=== PATIENT | male | born 1990 | race Caucasian/White ===

== ENCOUNTER 2017-03-23 11:44 | Inpatient (IN) | payer MEDICAID ==
[~2017-03-23] VITALS: Ht 165.1 cm; Wt 63.7 kg
--- NOTE | 2017-03-23 11:46 | QN ---
Documentation Comment Medical screening exam initiated. Patient will be seen by another provider after vital signs are taken in triage. GABRIEL SIMMONS MD Mar 23, 2017 11:46
[2017-03-23] MEDS ORDERED: morphine 4 MG/ML VIAL IV STA (12:08)
[2017-03-23] MEDS ORDERED: ONDANSETRON 4 MG INJ IV STA (12:08)
[2017-03-23] MEDS ORDERED: FAMOTIDINE 20 MG INJ IV STA (12:08)
[2017-03-23] MEDS ORDERED: SOD CHLORIDE 0.9% 1,000 ML IV ONE ×2 (12:30→21:00)
[2017-03-23 12:34] LABS: ADD SCAN DIFF NO
[2017-03-23 12:35] LABS: BASOPHILS % 0.2 % (0.0-2.0); HEMATOCRIT 44.9 % (42.0-52.0); HEMOGLOBIN 16.5 g/dl (14.0-18.0); LYMPHOCYTES # 1.2 10^3/ul (0.8-2.9); LYMPHOCYTES % 7.3 % (15.0-51.0); MEAN CORPUSCULAR HEMOGLOBIN 32.3 pg (29.0-33.0); MEAN CORPUSCULAR HGB CONC 36.7 g/dl (32.0-37.0); MEAN CORPUSCULAR VOLUME 87.9 fl (82.0-101.0); MEAN PLATELET VOLUME 9.8 fl (7.4-10.4); MONOCYTE # 0.7 10^3/ul (0.3-0.9); MONOCYTES % 4.2 % (0.0-11.0); NEUTROPHIL # 14.7 10^3/ul (1.6-7.5); PLATELET COUNT 318 10^3/UL (140-415); RED BLOOD COUNT 5.11 10^6/ul (4.70-6.10); RED CELL DISTRIBUTION WIDTH 11.9 % (11.5-14.5); WHITE BLOOD COUNT 16.7 10^3/ul (4.8-10.8)
[2017-03-23 12:56] LABS: ALBUMIN/GLOBULIN RATIO 1.61; CALCIUM 9.8 mg/dl (8.4-10.2); CREATININE 1.07 mg/dl (0.61-1.24); POTASSIUM 3.2 mmol/L (3.5-5.1); TOTAL PROTEIN 8.1 g/dl (6.1-8.1)
[2017-03-23] MEDS ORDERED: POTASSIUM CHLORIDE (SR) 20 MEQ TAB PO STA (13:11)
[2017-03-23] MEDS ORDERED: HYDROmorphONE 1 MG/ML SYG IV STA (13:29)
[2017-03-23] MEDS ORDERED: SOD CHLORIDE 0.9% 100 ML ONE (14:05)
[2017-03-23] MEDS ORDERED: IOHEXOL 300MG/ML 150 ML BTL ONE (14:05)
[2017-03-23 14:06] LABS: ADD UMIC YES; URINE BILIRUBIN (Dip) NEGATIVE (NEGATIVE); URINE BLOOD (Dip) NEGATIVE (NEGATIVE); URINE COLOR YELLOW (YELLOW); URINE GLUCOSE (Dip) NEGATIVE (NEGATIVE); URINE KETONES (Dip) TRACE (NEGATIVE); URINE LEUKOCYTE ESTERASE (Dip) NEGATIVE (NEGATIVE); URINE NITRITE (Dip) NEGATIVE (NEGATIVE); URINE TOTAL PROTEIN (Dip) 1+ (NEGATIVE); URINE UROBILINOGEN (Dip) 0.2 E.U./dL (0.1-1.0)
[2017-03-23 14:16] LABS: BACTERIA,URINE FEW; URINE RBCS NONE SEEN /HPF (0)
[2017-03-23] MEDS ORDERED: ONDANSETRON 4 MG INJ IV PRN (14:30)
[2017-03-23] MEDS ORDERED: AMPICILLIN/SULB 3 GM/NS (PMX) 100 ML IVPB ONE (14:30)
[2017-03-23] MEDS ORDERED: ACETAMINOPHEN 325 MG TAB PO PRN ×2 (14:30→15:30)
--- NOTE | 2017-03-23 14:33 | RADRPT ---
PROCEDURE: CT Abdomen and Pelvis with Contrast CLINICAL INDICATION: Pain, fever TECHNIQUE: Transaxial images were obtained through the abdomen and pelvis on a multi-slice scanner following the intravenous administration of iodinated contrast. A small amount of oral contrast had previously been given. Sagittal and coronal re-formations were subsequently reconstructed. One or more of the following dose reduction techniques were used: - Automated exposure control. - Adjustment of the mA and/or kV according to patient size. - Use of iterative reconstruction technique. Radiation dose: CTDIvol = 8.49 mGy; DLP = 492.55 mGy-cm. COMPARISON: No prior studies are available for comparison. FINDINGS: Lung bases: The visualized lung bases appear unremarkable. Liver: The liver is normal in size but diffusely fatty infiltrated. No focal lesion is identified. The hepatic and portal veins appear patent. Gallbladder: The wall is not thickened. No radiopaque stones are identified. Bile ducts: The intra and extrahepatic bile ducts are normal in caliber. Pancreas: There is fluid and phlegmon to the pancreatic bed and extending into the mesentery as well as into the left and right anterior pararenal spaces compatible with an acute pancreatitis. No jc creatic necrosis or pseudocyst is identified. Spleen: Normal in size with no focal lesion. Adrenals: Normal with no mass identified. Kidneys, ureters and bladder: The kidneys enhance normally and are normal in size and there is no ma ss, pathological calcification, or hydronephrosis evident. There is no perinephric stranding. The ur eters are normal in caliber and no ureteroliths are identified. The bladder appears unremarkable. Reproductive organs: The prostate is not enlarged. Stomach, bowel, and mesentery: The stomach is moderately distended with fluid. Phlegmon is seen abo ut the second and proximal third portions of the duodenum. There is no evidence of bowel obstructio n. Appendix: A normal vermiform appendix is evident. Peritoneum: No free intraperitoneal fluid or air is identified. Aorta: Normal in caliber with no aneurysmal dilatation. IVC: Unremarkable. Lymph nodes: No pathologically enlarged nodes are identified. Osseous structures: The osseous elements appear intact. IMPRESSION: 1. Findings compatible with acute pancreatitis with extensive phlegmon extending through the pancre atic bed, and into the mesentery and into the left and right anterior pararenal spaces. No pancreat ic necrosis is evident. 2. No gallstones or bile duct dilatation is evident. 3. Phlegmon extends about the duodenum but there is no evidence of bowel obstruction and a normal v ermiform appendix is evident. 4. No evidence of urinary outflow obstruction or ureterolithiasis. 5. Normal sized diffusely fatty infiltrated liver with no focal lesion. Findings of severe acute pancreatitis were telephoned by Red Tripathi MD to Dr. Wild on 03/23/20 17 and 1430 hours. Physician Ariana Date Time Electronically viewed and signed by Sonny Tripathi Physician on 03/23/2017 14:33 RH/
--- NOTE | 2017-03-23 14:44 | RADRPT ---
PROCEDURE: Right upper quadrant abdominal ultrasound. CLINICAL INDICATION: Abdominal pain TECHNIQUE: Trotter scale and color doppler ultrasound images of the right upper quadrant. COMPARISON: CT abdomen pelvis 03/23/2017 FINDINGS: Pancreas: Hypoechoic changes of the pancreas may be secondary to pancreatitis. Liver: Morphology: Normal in size and contour. Echogenicity: Increased echogenicity of the liver parenchyma suggestive of hepatic steatosis. Focal lesions: None. Main portal vein: Patent with hepatopetal flow. Biliary System: Normal appearing gallbladder wall. No gallstones seen. No intrahepatic biliary dilatation. Common bile duct measures 4.2 mm in maximal dimension. Kidneys: Right 9.7 cm in length. Right renal cortical thickness is preserved. Normal echogenicity. No hydronephrosis. No renal calculi. No focal lesions. Trace amount in the upper abdomen. IMPRESSION: Normal gallbladder without gallstones. Increased echogenicity of the liver parenchyma suggestive of hepatic steatosis. Hypoechoic changes of the pancreas may be secondary to pancreatitis. Recommend correlation with bio chemical markers. RPTAT: AADD .Hardik Villanueva MD, MD Date Time Electronically viewed and signed by .Hardik Villanueva MD, on 03/23/2017 14:44 .B/
--- NOTE | 2017-03-23 14:55 | ERA ---
ER Documentation Chief Complaint Date/Time DATE: 03/23/17 TIME: 14:54 Chief Complaint AP PAIN SINCE AM, PT DIAPHRETIC HPI Patient is a 27-year-old male who presents with abdominal pain. The abdominal pain started this morning. It is midepigastric and constant in nature. It is sharp. The patient has never had this before. He has had no treatment as of yet. ROS All systems reviewed and are negative except as per history of present illness. Allergies Allergies: Coded Allergies: No Known Allergy (Unverified , 08/10/15) PMhx/Soc Medical and Surgical Hx: pt denies Medical Hx, pt denies Surgical Hx History of Surgery: No Anesthesia Reaction: No Hx Neurological Disorder: No Hx Respiratory Disorders: No Hx Cardiac Disorders: No Hx Psychiatric Problems: No Hx Miscellaneous Medical Probl: No Hx Alcohol Use: No Hx Substance Use: No Hx Tobacco Use: No FmHx Family History: No diabetes Physical Exam Vitals Vital Signs Date Time Temp Pulse Resp B/P Pulse Ox O2 Delivery O2 Flow Rate FiO2 03/23/17 11:55 95.9 104 20 126/61 98 Physical Exam Const: Moderate distress secondary to pain Head: Atraumatic Eyes: Normal Conjunctiva ENT: Normal External Ears, Nose and Mouth. Neck: Full range of motion..~ No meningismus. Resp: Clear to auscultation bilaterally Cardio: Regular rate and rhythm, no murmurs Abd: Soft, midepigastric tenderness to palpation without rebound or guarding Skin: No petechiae or rashes Back: No midline or flank tenderness Ext: No cyanosis, or edema Neur: Awake and alert Psych: Normal Mood and Affect Result Diagram: 03/23/17 1230 03/23/17 1230 Results 24 hrs Laboratory Tests Test 03/23/17 12:30 03/23/17 13:30 White Blood Count 16.710^3/ul Red Blood Count 5.1110^6/ul Hemoglobin 16.5g/dl Hematocrit 44.9% Mean Corpuscular Volume 87.9fl Mean Corpuscular Hemoglobin 32.3pg Mean Corpuscular Hemoglobin Concent 36.7g/dl Red Cell Distribution Width 11.9% Platelet Count 29617^3/UL Mean Platelet Volume 9.8fl Neutrophils % 88.0% Lymphocytes % 7.3% Monocytes % 4.2% Eosinophils % 0.0% Basophils % 0.2% Nucleated Red Blood Cells % 0.0/100WBC Neutrophils # 14.710^3/ul Lymphocytes # 1.210^3/ul Monocytes # 0.710^3/ul Eosinophils # 0.010^3/ul Basophils # 0.010^3/ul Nucleated Red Blood Cells # 0.010^3/ul Sodium Level 142mmol/L Potassium Level 3.2mmol/L Chloride Level 103mmol/L Carbon Dioxide Level 21mmol/L Anion Gap 21 Blood Urea Nitrogen 21mg/dl Creatinine 1.07mg/dl Glucose Level 169mg/dl Calcium Level 9.8mg/dl Total Bilirubin 1.0mg/dl Direct Bilirubin 0.00mg/dl Indirect Bilirubin 1.0mg/dl Aspartate Amino Transf (AST/SGOT) 81IU/L Alanine Aminotransferase (ALT/SGPT) 82IU/L Alkaline Phosphatase 119IU/L Total Protein 8.1g/dl Albumin 5.0g/dl Globulin 3.10g/dl Albumin/Globulin Ratio 1.61 Lipase 5605U/L Urine Color YELLOW Urine Clarity CLEAR Urine pH 7.0 Urine Specific [place] 1.015 Urine Ketones TRACE Urine Nitrite NEGATIVE Urine Bilirubin NEGATIVE Urine Urobilinogen 0.2 E.U./dL Urine Leukocyte Esterase NEGATIVE Urine Microscopic RBC NONE SEEN/HPF Urine Microscopic WBC NONE SEEN/HPF Urine Amorphous Phosphates FEW Urine Bacteria FEW Urine Hemoglobin NEGATIVE Urine Glucose NEGATIVE% Urine Total Protein 1+ Current Medications Medications (Trade) Dose Ordered Sig/Miguel Route PRN Reason Start Time Stop Time Status Last Admin Dose Admin Morphine Sulfate (morphine) 4 mg ONCE STAT IV 03/23/17 12:08 03/23/17 12:09 DC 03/23/17 12:24 Ondansetron HCl (Zofran Inj) 4 mg ONCE STAT IV 03/23/17 12:08 03/23/17 12:09 DC 03/23/17 12:24 Famotidine 20 mg 20 mg ONCE STAT IV 03/23/17 12:08 03/23/17 12:09 DC 03/23/17 12:24 Sodium Chloride (NS) 1,000 ml @ 0 mls/hr Q0M ONCE IV 03/23/17 12:30 03/23/17 12:33 DC 03/23/17 13:28 Potassium Chloride (Klor-Con 20) 40 meq ONCE STAT PO 03/23/17 13:11 03/23/17 13:13 DC 03/23/17 13:26 Hydromorphone HCl (Dilaudid) 1 mg ONCE STAT IV 03/23/17 13:29 03/23/17 13:31 DC 03/23/17 13:45 IV Flush 10 ml 10 ml STK-MED ONCE .ROUTE 03/23/17 14:05 03/23/17 14:06 DC 03/23/17 14:17 Sodium Chloride (NS) 100 ml @ ud STK-MED ONCE .ROUTE 03/23/17 14:05 03/23/17 14:06 DC 03/23/17 14:18 Iohexol 150 ml 150 ml STK-MED ONCE .ROUTE 03/23/17 14:05 03/23/17 14:06 DC 03/23/17 14:18 Ampicillin Sodium/ Sulbactam Sodium (Unasyn 3gm/NS (Pmx)) 100 ml @ 100 mls/hr ONCE ONCE IVPB 03/23/17 14:30 03/23/17 15:29 Ondansetron HCl (Zofran Inj) 4 mg BRIDGE ORDER PRN IV NAUSEA AND/OR VOMITING 03/23/17 14:30 03/24/17 14:29 Acetaminophen (Tylenol Tab) 650 mg ER BRIDGE PRN PO MILD PAIN/FEVER 03/23/17 14:30 03/24/17 14:29 Procedures/MDM CT scan shows pancreatic phlegmon per radiology. Patient is a 27-year-old male presents with acute pancreatitis. He was found to have phlegmon on CT scan as well. The patient was given Unasyn IV. His white blood cell count is elevated at 16.7. I have spoke with Dr. Young from the panel team for admission to a medical surgical bed. I have also placed a call to Dr. Wagner from surgery as he is the surgeon senior health consultant. I am awaiting a callback at this time. At this point I doubt sepsis. Departure Diagnosis: Primary Impression: Abdominal pain Qualified Code: R10.13 - Epigastric pain Additional Impression: Pancreatitis Qualified Code: K85.92 - Acute pancreatitis with infected necrosis, unspecified pancreatitis type Condition: GABRIEL Vazquez MD Mar 23, 2017 14:55
[2017-03-23] MEDS ORDERED: BISACODYL (EC) 5 MG TAB PO PRN (15:30)
[2017-03-23] MEDS ORDERED: OXYCODONE/ACETAMINOPHEN (5/325) TAB PO PRN (15:30)
[2017-03-23] MEDS ORDERED: NACL 0.9% 3 ML SYG IV SCH (15:30)
[2017-03-23] MEDS ORDERED: ACETAMINOPHEN 650 MG SUPP PR PRN (15:30)
[2017-03-23] MEDS ORDERED: SODIUM CHLORIDE 0.9% 1L BAG IV SCH (15:30)
[2017-03-23] MEDS ORDERED: BISACODYL 10 MG SUPP PR PRN (15:30)
--- NOTE | 2017-03-23 16:35 | RADRPT ---
PROCEDURE: XR Chest. CLINICAL INDICATION: preop TECHNIQUE: Single frontal view of the chest was obtained COMPARISON: None FINDINGS: The heart and mediastinum are within normal limits. The lungs are clear. There is no pleural effusion or pneumothorax. RPTAT: AA IMPRESSION: No acute disease. .Bubba Rodriguez MD, Date Time Electronically viewed and signed by .Bubba Rodriguez MD, on 03/23/2017 16:34 .S/
[2017-03-23] MEDS: SOD CHLORIDE 0.9% 1,000 ML IV SCH ×2 (17:34→20:02)
[2017-03-23 18:09] LABS: INR 0.89; PT RATIO 0.9
[2017-03-23 18:10] LABS: PARTIAL THROMBOPLASTIN TIME 21.8 Sec (25.0-35.0)
[2017-03-23 18:48] VITALS: TEMP 98
[2017-03-23] MEDS: morphine 2 MG INJ IV PRN (18:52)
[2017-03-23] MEDS: ONDANSETRON 4 MG INJ IV PRN (18:57)
[2017-03-23] MEDS: morphine 4 MG/ML VIAL IV PRN (20:29)
[2017-03-23] MEDS: AMPICILLIN/SULB 3 GM/NS (PMX) 100 ML IVPB SCH (20:29)
[2017-03-23] MEDS: FAMOTIDINE 20 MG INJ IV SCH (22:37)
[2017-03-23] MEDS ORDERED: OXYC-279 PO (23:12)
[2017-03-23] MEDS ORDERED: FAMO10TA84 PO (23:12)
[2017-03-23] MEDS ORDERED: ACET-141 PO (23:12)
[2017-03-24 00:44] VITALS: Ht 165.1 cm; Wt 63.7 kg
[2017-03-24 00:45] VITALS: BP 133/91; RESP 19
[2017-03-24] MEDS: SOD CHLORIDE 0.9% 1,000 ML IV SCH ×2 (00:51→16:33)
[2017-03-24] MEDS: ONDANSETRON 4 MG INJ IV PRN ×2 (00:57→07:33)
[2017-03-24] MEDS: morphine 4 MG/ML VIAL IV PRN ×3 (00:57→16:35)
[2017-03-24] MEDS: AMPICILLIN/SULB 3 GM/NS (PMX) 100 ML IVPB SCH ×5 (02:12→19:10)
[2017-03-24 05:22] LABS: ADD SCAN DIFF NO
[2017-03-24 05:27] LABS: BASOPHILS % 0.1 % (0.0-2.0); HEMATOCRIT 52.5 % (42.0-52.0); HEMOGLOBIN 18.2 g/dl (14.0-18.0); LYMPHOCYTES # 0.7 10^3/ul (0.8-2.9); LYMPHOCYTES % 5.1 % (15.0-51.0); MEAN CORPUSCULAR HGB CONC 34.7 g/dl (32.0-37.0); MEAN CORPUSCULAR VOLUME 92.3 fl (82.0-101.0); MEAN PLATELET VOLUME 10.3 fl (7.4-10.4); MONOCYTE # 0.9 10^3/ul (0.3-0.9); MONOCYTES % 6.3 % (0.0-11.0); NEUTROPHIL # 12.1 10^3/ul (1.6-7.5); NEUTROPHILS % 88.1 % (39.0-77.0); PLATELET COUNT 236 10^3/UL (140-415); RED BLOOD COUNT 5.69 10^6/ul (4.70-6.10); RED CELL DISTRIBUTION WIDTH 12.7 % (11.5-14.5); WHITE BLOOD COUNT 13.8 10^3/ul (4.8-10.8)
[2017-03-24 05:47] LABS: ALBUMIN 4.1 g/dl (3.3-4.9); ALBUMIN/GLOBULIN RATIO 1.41; BILIRUBIN,INDIRECT 0.9 mg/dl (0-1.1); BILIRUBIN,TOTAL 0.9 mg/dl (0.2-1.3); CALCIUM 9.2 mg/dl (8.4-10.2); CREATININE 1.15 mg/dl (0.61-1.24); PHOSPHORUS 5.8 mg/dl (2.5-4.9); POTASSIUM 4.9 mmol/L (3.5-5.1)
[2017-03-24 06:17] LABS: THYROID STIMULATING HORMONE 0.531 MIU/L (0.465-4.680)
[2017-03-24 07:00] VITALS: BP 128/80; RESP 20
[2017-03-24 09:58] LABS: AADO2 Arterial 15.3 mmHg (7.0-24.0); Allen Test ACCEPTAB; Arterial Base Excess -3.1 mmol/L (-3.0-3); Arterial COHb 0.3 % (0.0-3.0); Arterial MetHb 0.5 % (0.0-1.5); Arterial Total Hemglobin 18.5 g/dl (12.0-18.0); MODE ROOM AIR
[2017-03-24 10:23] LABS: INR 0.99; PROTIME 13.1 Sec (12.2-14.2)
[2017-03-24 10:25] LABS: LACTATE DEHYDROGENASE 519 IU/L (313-618)
[2017-03-24 10:27] LABS: CHOL/HDL RATIO 2.9 RATIO
[2017-03-24] MEDS: FAMOTIDINE 20 MG INJ IV SCH ×2 (10:42→20:54)
[2017-03-24] MEDS ORDERED: SOD CHLORIDE 0.9% 1,000 ML IV ONE (12:00)
--- NOTE | 2017-03-24 12:06 | PN ---
Date/Time of Note Date/Time of Note DATE: 03/24/17 TIME: 12:04 Assessment/Plan VTE Prophylaxis VTE Prophylaxis Intervention: LMWH Lines/Catheters IV [facility] Peripheral IV Urinary Cath still in place: No Assessment/Plan Chief Complaint/Hosp Course Subjective moderate pain. Recent vomiting no hematemesis Objective: Vital signs stable Physical examination No pallor icterus adenopathy Regular Diminished Diminished bs; mod diffuse tenderness w possible voluntary guarding No edema Assessment and plan 1. Severe pancreatitis stable continue n.p.o. fluids no gallstones present 2. Chronic alcoholism; consider counseling AA 3. Alcoholic liver disease? 4. Depression? Problems: Exam/Review of Systems Vital Signs Vitals Vital Signs Date Time Temp Pulse Resp B/P Pulse Ox O2 Delivery O2 Flow Rate FiO2 03/24/17 07:00 98.0 117 20 128/80 98 03/24/17 00:07 Room Air Intake and Output 03/23/17 03/23/17 03/24/17 15:00 23:00 07:00 Intake Total 600 ml Output Total 250 ml Balance 350 ml Results Result Diagram: 03/24/17 0449 03/24/17 0449 Results 24 hrs Laboratory Tests Test 03/23/17 12:30 03/23/17 13:30 03/23/17 18:00 03/24/17 04:49 White Blood Count 16.7 H 13.8 H Red Blood Count 5.11 5.69 Hemoglobin 16.5 18.2 H Hematocrit 44.9 52.5 H Mean Corpuscular Volume 87.9 92.3 Mean Corpuscular Hemoglobin 32.3 32.0 Mean Corpuscular Hemoglobin Concent 36.7 34.7 Red Cell Distribution Width 11.9 12.7 Platelet Count 318 236 # Mean Platelet Volume 9.8 10.3 Neutrophils % 88.0 H 88.1 H Lymphocytes % 7.3 L 5.1 L Monocytes % 4.2 6.3 Eosinophils % 0.0 0.0 Basophils % 0.2 0.1 Nucleated Red Blood Cells % 0.0 0.0 Neutrophils # 14.7 H 12.1 H Lymphocytes # 1.2 0.7 L Monocytes # 0.7 0.9 Eosinophils # 0.0 0.0 Basophils # 0.0 0.0 Nucleated Red Blood Cells # 0.0 0.0 Sodium Level 142 143 Potassium Level 3.2 L 4.9 Chloride Level 103 106 Carbon Dioxide Level 21 25 Anion Gap 21 H 17 H Blood Urea Nitrogen 21 H 22 H Creatinine 1.07 1.15 Glucose Level 169 132 Calcium Level 9.8 9.2 Total Bilirubin 1.0 0.9 Direct Bilirubin 0.00 0.00 Indirect Bilirubin 1.0 0.9 Aspartate Amino Transf (AST/SGOT) 81 H 52 H Alanine Aminotransferase (ALT/SGPT) 82 H 63 Alkaline Phosphatase 119 82 Total Protein 8.1 7.0 # Albumin 5.0 H 4.1 Globulin 3.10 2.90 Albumin/Globulin Ratio 1.61 1.41 Lipase 5605 H Urine Color YELLOW Urine Clarity CLEAR Urine pH 7.0 Urine Specific [place] 1.015 Urine Ketones TRACE Urine Nitrite NEGATIVE Urine Bilirubin NEGATIVE Urine Urobilinogen 0.2 E.U./dL Urine Leukocyte Esterase NEGATIVE Urine Microscopic RBC NONE SEEN Urine Microscopic WBC NONE SEEN Urine Amorphous Phosphates FEW Urine Bacteria FEW Urine Hemoglobin NEGATIVE Urine Glucose NEGATIVE Urine Total Protein 1+ H Prothrombin Time 12.0 L Prothrombin Time Ratio 0.9 INR International Normalized Ratio 0.89 Activated Partial Thromboplast Time 21.8 L Hemoglobin A1c 5.7 Phosphorus Level 5.8 H Magnesium Level 2.0 Thyroid Stimulating Hormone (TSH) 0.531 Test 03/24/17 08:00 03/24/17 09:40 Blood Gas Specimen Source Blood arterial Arterial Blood Date Drawn 03/24/2017 9:40:24 AM Arterial Blood pH (Temp corrected) 7.359 Arterial Blood pCO2 (Temp correct) 40.0 Arterial Blood pO2 (Temp corrected) 86.5 Arterial Blood HCO3 22.0 Arterial Blood Base Excess -3.1 L Arterial Blood Oxygen Saturation 95.8 Omar Test ACCEPTAB Arterial Blood Gas Puncture Site Left Radial Arterial Blood Carboxyhemoglobin 0.3 Arterial Blood Methemoglobin 0.5 Blood Gas A-a O2 Differential 15.3 Oxyhemoglobin Percent 95.0 Total Hemoglobin 18.5 H Blood Gas Temperature 37.0 Blood Gas Modality ROOM AIR FiO2 21.0 Blood Gas Notified Whom JLD Blood Gas Notified Time 03/24/2017 9:58:03 AM Prothrombin Time 13.1 Prothrombin Time Ratio 1.0 INR International Normalized Ratio 0.99 Lactate Dehydrogenase 519 Triglycerides Level 121 Cholesterol Level 127 LDL Cholesterol, Calculated 60 HDL Cholesterol 43 Cholesterol/HDL Ratio 2.9 Lipase 6140 H Medications Medications Current Medications Sodium Chloride (NS) 1,000 ml @ 125 mls/hr Q8H IV Last administered on 00:51; Admin Dose 125 MLS/HR; Start 03/23/17 at 15:01 Ondansetron HCl (Zofran Inj) 4 mg Q6H PRN IV NAUSEA AND/OR VOMITING Last administered on 03/24/17 07:33; Admin Dose 4 MG; Start 03/23/17 at 15:30 Acetaminophen (Tylenol Tab) 650 mg Q6H PRN PO PAIN LEVEL 1-3 OR FEVER; Start at 15:30 Acetaminophen (Tylenol Supp) 650 mg Q6H PRN AR PAIN LEVEL 1-3 OR FEVER; Start 03/23/17 at 15:30 Oxycodone/ Acetaminophen (Percocet (5/ 325)) 1 tab Q6H PRN PO MODERATE PAIN LEVEL 4-6; Start 03/23/17 at 15:30 Morphine Sulfate (morphine) 2 mg Q4H PRN IV SEVERE PAIN LEVEL 7-10 Last administered on 03/23/17 18:52; Admin Dose 2 MG; Start 03/23/17 at 15:30 Bisacodyl (Dulcolax) 5 mg DAILY PRN PO CONSTIPATION; Start 03/23/17 at 15:30 Bisacodyl (Dulcolax Supp) 10 mg DAILY PRN AR CONSTIPATION; Start 03/23/17 at 15: 30 Famotidine 20 mg 20 mg Q12 IV Last administered on 03/24/17 10:42; Admin Dose 20 MG; Start 03/23/17 at 21:00 Ampicillin Sodium/ Sulbactam Sodium (Unasyn 3gm/NS (Pmx)) 100 ml @ 100 mls/hr Q6 IVPB Last administered on 03/24/17 07:10; Admin Dose 100 MLS/HR; Start at 19:00 Morphine Sulfate 4 mg 4 mg Q4 PRN IV PAIN LEVEL 6-10 Last administered on 10:46; Admin Dose 4 MG; Start 03/23/17 at 20:30 Sodium Chloride (NS) 1,000 ml @ 1,000 mls/hr Q1H ONCE IV ; Start 03/24/17 at 12: 00; Stop 03/24/17 at 12:59 ROSALBA SKAGGS MD Mar 24, 2017 12:06
[2017-03-24] MEDS ORDERED: ONDANSETRON 4 MG INJ IV PRN (13:00)
--- NOTE | 2017-03-24 13:13 | HP ---
DATE OF ADMISSION: 03/23/2017 PRIMARY CARE PHYSICIAN: Unknown. PLAN CHECKER: Dr. George Martínez. CHIEF COMPLAINT: Abdominal pain. 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 No similar pain in the past. He oc casionally ____, but denies any ill contacts, associated nausea, vomiting, subjective fever, chills , no diarrhea or constipation. No hematemesis, hematochezia or melena. No previous similar discomf ort in the past. The patient states he does drink. EMERGENCY ROOM: Stable vital signs except sinus tachycardia. EKG pending. PAST MEDICAL HISTORY: Alcoholism? PAST SURGICAL HISTORY: None. SOCIAL HISTORY: Beer, but no hard liquor daily. No tobacco substances. Works in construction. FAMILY HISTORY: There is no family history of early coronary artery disease, cancer, or stroke that I am aware of. ALLERGIES: NO KNOWN DRUG ALLERGIES. HOME MEDICATIONS: None. REVIEW OF SYSTEMS: NEUROLOGIC: No headache. No loss of speech or vision. CARDIOVASCULAR: No chest pain, no dyspnea, no edema. LUNGS: No cough, no wheezing. Possible fever. ABDOMEN: Pain, nausea, vomiting, no diarrhea. GENITOURINARY: No hematuria. Positive abdominal pain, subjective, fever, no dysuria. MUSCULOSKELETAL: No gait dysfunction. No rash, no itching, no edema. CONSTITUTIONAL: Positive subjective fever, chills, potentially rigor. ENDOCRINE: No previous diabetes, dyslipidemia, anemia, or thyroid dysfunction. HEMATOLOGIC: No hematochezia, melena, hematuria. PSYCHIATRY: The patient has stable mood, ____. PHYSICAL EXAMINATION: HEENT: Extraocular movements appear to be intact. No pallor, no icterus, no adenopathy, no carotid bruits, no JVD. No droop. CARDIOVASCULAR: S1, ____ appear to be regular. No murmur, rub, gallops appreciated. LUNGS: Diminished breath sounds bilaterally. No tachypnea. ABDOMEN: Bowel sounds are diminished, mild, tender, diffuse, nondistended. No rigidity, rebound, guarding. There may be some mild voluntary guarding. No flank ecchymosis today. EXTREMITIES: Without any edema. LABORATORY DATA: Sodium 142, potassium 3.2, chloride 103, bicarbonate 21, BUN of 21, creatinine 1.0 . Glucose 160. LFTs show normal bilirubin 1.0, AST and ALT of 81 and 82, alkaline phosphatase of 1 19, protein of 8, albumin of 5, lipase of 5600. TSH is 531. INR is 0.9. White cell count is 16, h emoglobin and hematocrit of 16 and 44, platelets of 318, triglycerides today total of 127, LDL 60, H DL of 43. Urobilinogen 0.2. ABG today shows pH of 7.35/40/86, saturation 95, -3 of base excess. Chest x-ray: No acute process. CAT scan abdomen and pelvis read as pancreatitis with extensive phl egmon extending through the pancreatic bed, into the mesentery and into the left and right anterior perirenal spaces. No necrosis evident, no gallstones or pancreatic duct palpitations evident. The phlegmon extends about the duodenum, but there is no evidence of bowel obstruction, diffuse fatty in filtrative liver disease with no focal lesion. Ultrasound of gallbladder demonstrating a normal gal lbladder without gallstones. There is echogenicity of the liver____ hepatic steatosis. ASSESSMENT AND PLAN: 1. Acute severe pancreatitis. 2. Alcoholism. 3. Possible alcoholic liver disease. 4. Possible depression. PLAN: Admit to med/surg, fluids, n.p.o., IV fluid, potentially may need Zosyn. Surgical evaluation if does not heal, may need debridement. Continue GI and DVT prophylaxis. Dictated By: ROSALBA SKAGGS MD AC/NTS Conf#: [id number] DID#: [id number] CC: GEORGE MARTÍNEZ MD;*EndCC*
--- NOTE | 2017-03-24 20:19 | CONS ---
[facility] INITIAL INPATIENT CONSULTATION NOTE DATE OF CONSULTATION: 03/24/2017 PLACE OF SERVICE: [facility], 4th floor. IMPRESSION AND PLAN: A very pleasant and otherwise seemingly healthy 27-year- old young gentleman with possible heavy alcohol abuse presenting with pancreatitis that in this setting is likely due to alcohol intake. The gallbladder does not demonstrate any presence of stones on the images, but certainly a few percentage of these patients also have biliary disease, which could explain the pancreatitis. Fortunately, there is no indication for any surgical intervention, and the patient should be able to recover with nonoperative management in hospital with pain control, fluid administration and careful observation. I recommended that the patient absolutely abstain from alcohol intake and that we would consider a laparoscopic cholecystectomy as a preventive measure to be done in several weeks' time in order to make sure that there is no biliary stone disease that may have precipitated this problem. I explained all this to the patient in detail (no family present during any of my discussions with the patient), and the patient appeared to understand and agreed with the plan. With above assessment, I have recommended the followin. Continue current management. 2. Check labs in a.m. 3. Keep n.p.o. 4. Intravenous fluids. 5. Treat symptoms. 6. Start clear liquid diet once the lipase starts trending down. Thank you again for allowing us to participate in the care of this very pleasant gentleman and I am certain his wonderful family. If there are any questions, please feel free to contact me at [phone]. UPDATED CLINICAL SUMMARY: A very pleasant and otherwise seemingly healthy 27- year-old young gentleman admitted to the [facility] Emergency Department on 03/23/2017 with pancreatitis that is likely due to alcohol. COMORBIDITIES: Possible alcoholism. HISTORY OF PRESENT ILLNESS: The patient is a very pleasant 27-year-old gentleman who presented with abdominal pain and elevated lipase and CT findings that were consistent with pancreatitis. He reports drinking significantly in the form of beer. He has never had any similar pain in the past and no other prior episodes of pancreatitis. ALLERGIES: NO KNOWN DRUG ALLERGIES. HOME MEDICATIONS: None. SOCIAL HISTORY: The patient reports drinking beer but no hard liquor on a daily basis. No history of tobacco abuse. No intravenous drug use. He works in construction. FAMILY HISTORY: There is no mention of major medical, surgical or oncologic problems in the family. REVIEW OF SYSTEMS: Other than the above mentioned, there are no other pertinent positives or pertinent negatives in a complete 14-point review of systems. PHYSICAL EXAMINATION: GENERAL: The patient appears to be a very pleasant young gentleman of descent, appearing stated age, lying in bed comfortably and in no acute distress. BMI 23.4. VITAL SIGNS: Temperature 98.0, blood pressure 128/80, pulse 117, respiratory rate 20, pulse oximetry 98% on room air. HEENT: Normocephalic and atraumatic. Extraocular muscles and hearing are grossly intact bilaterally and symmetrically. Sclerae are nonicteric. Oral cavity is clear; oral mucosa appeared to be pink and moist. Dentition: fair. NECK: Supple. There is no lymphadenopathy or JVD. There is no submental, submandibular or supraclavicular lymphadenopathy. CHEST: Rises symmetrically with each breath; patient is breathing comfortably. There are no audible wheezes, rales or rhonchi on the gross exam. HEART: Pulse is regular and palpable on the right wrist. Capillary refill was normal. Carotid pulses are palpable bilaterally and symmetrically in the neck. EXTREMITIES: Lower extremities contain no pitting edema around the ankles bilaterally and symmetrically. ABDOMEN: Soft, mildly tender to palpation in the mid upper quadrant and otherwise nondistended. There is no evidence of caput medusae, engorged subcutaneous veins, organomegaly or ascites. There are no peritoneal signs or guarding. SKIN: Appears to be pink and feels warm to touch. NEUROLOGIC: Awake, alert, and follows commands appropriately. LABORATORY VALUES: White blood cell count 13.8, down from 16.7. Platelets 236. Admission lipase was 5605 and this morning is 6140. Electrolytes are normal. CO2 25, creatinine 1.15, phosphorus 5.8, total bilirubin 0.9, AST 52, ALT 63, alkaline phosphatase 82. Hemoglobin A1c 5.7. INR 0.99. Urinalysis is negative for leukocyte esterase or nitrite. IMAGING: The patient underwent an abdominal and pelvic CT on 03/23/2017 that demonstrated findings compatible with acute pancreatitis with extensive phlegmon extending to the pancreatic bed and into the mesentery and into the left and right anterior perirenal spaces. No pancreatic necrosis was evident. No gallstones or bile duct dilatation was seen. No evidence of bowel obstruction. Normal appendix was found. No evidence of urinary outflow obstruction or ureterolithiasis, and normal-sized diffuse fatty infiltrated liver with no focal lesions was seen. Note that I personally reviewed all available and pertinent images, and I agree in general with their overall reported findings. The patient also had an abdominal ultrasound that showed normal gallbladder without gallstones. Dictated By: GEORGE ANDERSEN/JAIRON Conf#: [id number] DID#: [id number]
[2017-03-24 21:36] VITALS: BP 131/77; RESP 18
[2017-03-25] MEDS: AMPICILLIN/SULB 3 GM/NS (PMX) 100 ML IVPB SCH ×4 (00:28→18:05)
[2017-03-25] MEDS: SOD CHLORIDE 0.9% 1,000 ML IV SCH ×4 (00:29→20:47)
[2017-03-25] MEDS: morphine 2 MG INJ IV PRN (02:37)
[2017-03-25 05:12] LABS: ADD SCAN DIFF NO
[2017-03-25 05:19] LABS: BASOPHILS % 0.3 % (0.0-2.0); EOSINOPHILS % 0.3 % (0.0-7.0); HEMATOCRIT 37.1 % (42.0-52.0); HEMOGLOBIN 12.5 g/dl (14.0-18.0); LYMPHOCYTES % 9.1 % (15.0-51.0); MEAN CORPUSCULAR HEMOGLOBIN 31.7 pg (29.0-33.0); MEAN CORPUSCULAR HGB CONC 33.7 g/dl (32.0-37.0); MEAN CORPUSCULAR VOLUME 94.2 fl (82.0-101.0); MEAN PLATELET VOLUME 10.5 fl (7.4-10.4); MONOCYTE # 0.8 10^3/ul (0.3-0.9); MONOCYTES % 7.4 % (0.0-11.0); NEUTROPHIL # 9.1 10^3/ul (1.6-7.5); NEUTROPHILS % 82.6 % (39.0-77.0); RED BLOOD COUNT 3.94 10^6/ul (4.70-6.10); RED CELL DISTRIBUTION WIDTH 13.1 % (11.5-14.5)
[2017-03-25 05:47] LABS: ALBUMIN 3.2 g/dl (3.3-4.9); ALBUMIN/GLOBULIN RATIO 1.45; BILIRUBIN,INDIRECT 0.7 mg/dl (0-1.1); BILIRUBIN,TOTAL 0.7 mg/dl (0.2-1.3); CALCIUM 8.3 mg/dl (8.4-10.2); CREATININE 0.91 mg/dl (0.61-1.24); POTASSIUM 3.8 mmol/L (3.5-5.1); TOTAL PROTEIN 5.4 g/dl (6.1-8.1)
[2017-03-25 06:03] LABS: PLATELET COUNT 123 10^3/UL (140-415)
[2017-03-25] MEDS: FAMOTIDINE 20 MG INJ IV SCH ×2 (08:19→20:46)
[2017-03-25] MEDS: ENOXAPARIN 40 MG/0.4 ML SYG SC SCH (08:38)
[2017-03-25 09:39] VITALS: BP 122/79; RESP 20
[2017-03-25 11:00] VITALS: BP 128/76; PULSE 101; RESP 18
[2017-03-25 15:00] VITALS: BP 122/81; PULSE 100; RESP 18
--- NOTE | 2017-03-25 17:10 | PN ---
Date/Time of Note Date/Time of Note DATE: 03/25/17 TIME: 17:08 Assessment/Plan VTE Prophylaxis VTE Prophylaxis Intervention: LMWH Lines/Catheters IV Catheter Type (from Nrs): Peripheral IV Urinary Cath still in place: No Assessment/Plan Chief Complaint/Hosp Course S: 6/7 mod pain. Recent vomiting no hematemesis. 8 less pain mostly in the back. No vomiting, or dyspnea. O: Vss PE No pallor icterus Regular Diminished Dimin bs; mod diffuse tender no r/r/g No edema A/P 1. Severe pancreatitis stable cont, pain control, start clear fluid; no gallstones present. Elective cholecystectomy down the line. 2. Chr alcoholism; consider counseling AA 3. Alcoholic liver disease? 4. Depression? Problems: Exam/Review of Systems Vital Signs Vitals Vital Signs Date Time Temp Pulse Resp B/P Pulse Ox O2 Delivery O2 Flow Rate FiO2 03/25/17 15:00 98.1 100 18 122/81 Room Air 03/25/17 09:39 100 Intake and Output 03/24/17 03/24/17 03/25/17 15:00 23:00 07:00 Intake Total 700 ml 1300 ml 1400 ml Output Total 200 ml 1450 ml 850 ml Balance 500 ml -150 ml 550 ml Results Result Diagram: 03/25/17 0424 03/25/17 0424 Results 24 hrs Laboratory Tests Test 03/25/17 04:24 White Blood Count 11.0 #H Red Blood Count 3.94 #L Hemoglobin 12.5 #L Hematocrit 37.1 #L Mean Corpuscular Volume 94.2 Mean Corpuscular Hemoglobin 31.7 Mean Corpuscular Hemoglobin Concent 33.7 Red Cell Distribution Width 13.1 Platelet Count 123 #L Mean Platelet Volume 10.5 H Neutrophils % 82.6 H Lymphocytes % 9.1 L Monocytes % 7.4 Eosinophils % 0.3 Basophils % 0.3 Nucleated Red Blood Cells % 0.0 Neutrophils # 9.1 H Lymphocytes # 1.0 Monocytes # 0.8 Eosinophils # 0.0 Basophils # 0.0 Nucleated Red Blood Cells # 0.0 Large Platelets OCCASIONAL Sodium Level 140 Potassium Level 3.8 Chloride Level 109 Carbon Dioxide Level 25 Anion Gap 10 # Blood Urea Nitrogen 19 Creatinine 0.91 Glucose Level 77 # Calcium Level 8.3 L Total Bilirubin 0.7 Direct Bilirubin 0.00 Indirect Bilirubin 0.7 Aspartate Amino Transf (AST/SGOT) 35 Alanine Aminotransferase (ALT/SGPT) 39 Alkaline Phosphatase 54 Total Protein 5.4 #L Albumin 3.2 L Globulin 2.20 Albumin/Globulin Ratio 1.45 Medications Medications Current Medications Sodium Chloride (NS) 1,000 ml @ 125 mls/hr Q8H IV Last administered on 00:29; Admin Dose 125 MLS/HR; Start 03/23/17 at 15:01 Acetaminophen (Tylenol Tab) 650 mg Q6H PRN PO PAIN LEVEL 1-3 OR FEVER; Start at 15:30 Acetaminophen (Tylenol Supp) 650 mg Q6H PRN [place] PAIN LEVEL 1-3 OR FEVER; Start 03/23/17 at 15:30 Oxycodone/ Acetaminophen (Percocet (5/ 325)) 1 tab Q6H PRN PO MODERATE PAIN LEVEL 4-6; Start 03/23/17 at 15:30 Morphine Sulfate (morphine) 2 mg Q4H PRN IV SEVERE PAIN LEVEL 7-10 Last administered on 03/25/17 02:37; Admin Dose 2 MG; Start 03/23/17 at 15:30 Bisacodyl (Dulcolax) 5 mg DAILY PRN PO CONSTIPATION; Start 03/23/17 at 15:30 Bisacodyl (Dulcolax Supp) 10 mg DAILY PRN [place] CONSTIPATION; Start 03/23/17 at 15: 30 Famotidine 20 mg 20 mg Q12 IV Last administered on 03/25/17 08:19; Admin Dose 20 MG; Start 03/23/17 at 21:00 Ampicillin Sodium/ Sulbactam Sodium (Unasyn 3gm/NS (Pmx)) 100 ml @ 100 mls/hr Q6 IVPB Last administered on 03/25/17 08:19; Admin Dose 100 MLS/HR; Start at 19:00 Morphine Sulfate (morphine) 4 mg Q4 PRN IV PAIN LEVEL 6-10 Last administered on 03/24/17 16:35; Admin Dose 4 MG; Start 03/23/17 at 20:30 Ondansetron HCl (Zofran Inj) 4 mg Q4H PRN IV NAUSEA AND/OR VOMITING; Start 03/24 at 13:00 Enoxaparin Sodium (Lovenox) 40 mg DAILY SC Last administered on 03/25/17t 08:38 ; Admin Dose 40 MG; Start 03/25/17 at 09:00 ROSALBA SKAGGS MD Mar 25, 2017 17:10
[2017-03-25] MEDS: THIAMINE 100 MG TAB PO SCH (18:10)
[2017-03-25 19:40] VITALS: BP 128/87; RESP 18
--- NOTE | 2017-03-25 20:34 | PN ---
Date/Time of Note Date/Time of Note DATE: 03/25/17 TIME: 20:26 Assessment/Plan Lines/Catheters IV Catheter Type (from Nrs): Peripheral IV Manzo in Place (from Nrs): No Assessment/Plan Assessment/Plan [facility] Progress Note Date of Service: 03/25/17 Today's Impression & Plan: Overall stable. Pancreatitis clinically improving. No indication for acute surgical intervention. With above assessment, I've recommended the following for today: 1. Clear liquid diet 2. Keep inhouse 3. Labs in am Thank you again for your great care of this very pleasant patient and wonderful family. If there are any questions, please feel free to call me at [phone]. TOTAL VISIT TIME: 20 minutes of which more than half was spent in [id number] discussion with the patient, possibly including family, as well as coordination of care between multiple physicians and providers. Disclaimer: Inadvertent spelling or grammatical errors are likely due to EHR/ dictation software use and do not reflect on the overall quality of patient care. Updated Clinical Summary: A very pleasant and otherwise seemingly healthy 27-year-old young gentleman admitted to the [facility] Emergency Department on 03/23/2017 with pancreatitis that is likely due to alcohol. COMORBIDITIES: Possible alcoholism. Subjective: No major events or complaints; no major abd pain and under control with medications; no n/v/d; no sob or cp; - flatus; - BM; + activity Objective: Vitals: See below Exam: GENERAL: On exam, the patient was sitting in a chair and appeared to be comfortable and in no acute distress. ABDOMEN: Soft, for the most part nontender with slight discomfort in the mid abd , and nondistended. There are no peritoneal signs or guarding. SKIN: Skin appears to be pink and feels warm to touch. NEUROLOGIC: Patient is awake, alert, and follows commands appropriately. Exam/Review of Systems Vital Signs Vitals Vital Signs Date Time Temp Pulse Resp B/P Pulse Ox O2 Delivery O2 Flow Rate FiO2 03/25/17 19:40 97.9 89 18 128/87 99 03/25/17 15:00 Room Air Intake and Output 03/24/17 03/24/17 03/25/17 15:00 23:00 07:00 Intake Total 700 ml 1300 ml 1400 ml Output Total 200 ml 1450 ml 850 ml Balance 500 ml -150 ml 550 ml Results Result Diagram: 03/25/17 0424 03/25/17 0424 GEORGE MARTÍNEZ M.D. Mar 25, 2017 20:34
[2017-03-26 05:30] LABS: ADD SCAN DIFF NO
[2017-03-26] MEDS: DEXTROSE 5%-0.45% NACL 1,000 ML IV SCH ×2 (05:38→15:46)
[2017-03-26 05:39] LABS: BASOPHILS % 0.4 % (0.0-2.0); EOSINOPHILS # 0.2 10^3/ul (0.0-0.5); EOSINOPHILS % 1.8 % (0.0-7.0); HEMATOCRIT 32.2 % (42.0-52.0); LYMPHOCYTES # 1.1 10^3/ul (0.8-2.9); LYMPHOCYTES % 11.4 % (15.0-51.0); MEAN CORPUSCULAR HEMOGLOBIN 32.1 pg (29.0-33.0); MEAN CORPUSCULAR HGB CONC 34.2 g/dl (32.0-37.0); MEAN CORPUSCULAR VOLUME 93.9 fl (82.0-101.0); MEAN PLATELET VOLUME 10.5 fl (7.4-10.4); MONOCYTE # 0.6 10^3/ul (0.3-0.9); MONOCYTES % 6.8 % (0.0-11.0); NEUTROPHIL # 7.4 10^3/ul (1.6-7.5); NEUTROPHILS % 79.3 % (39.0-77.0); PLATELET COUNT 136 10^3/UL (140-415); RED BLOOD COUNT 3.43 10^6/ul (4.70-6.10); RED CELL DISTRIBUTION WIDTH 12.6 % (11.5-14.5); WHITE BLOOD COUNT 9.4 10^3/ul (4.8-10.8)
[2017-03-26 05:57] LABS: ALBUMIN 3.2 g/dl (3.3-4.9); ALBUMIN/GLOBULIN RATIO 1.28; BILIRUBIN,INDIRECT 0.8 mg/dl (0-1.1); BILIRUBIN,TOTAL 0.8 mg/dl (0.2-1.3); CALCIUM 8.5 mg/dl (8.4-10.2); CREATININE 0.78 mg/dl (0.61-1.24); PHOSPHORUS 2.7 mg/dl (2.5-4.9); POTASSIUM 3.5 mmol/L (3.5-5.1); TOTAL PROTEIN 5.7 g/dl (6.1-8.1)
[2017-03-26 07:00] VITALS: BP 119/75; RESP 20
[2017-03-26] MEDS: FAMOTIDINE 20 MG INJ IV SCH ×2 (08:56→21:12)
[2017-03-26] MEDS: THIAMINE 100 MG TAB PO SCH (08:57)
[2017-03-26] MEDS: ENOXAPARIN 40 MG/0.4 ML SYG SC SCH (10:33)
--- NOTE | 2017-03-26 14:45 | PN ---
Date/Time of Note Date/Time of Note DATE: 03/26/17 TIME: 14:43 Assessment/Plan VTE Prophylaxis VTE Prophylaxis Intervention: LMWH Lines/Catheters IV Catheter Type (from [facility]): Peripheral IV Urinary Cath still in place: No Assessment/Plan Chief Complaint/Hosp Course S: 67 mod pain. Recent vomiting no hematemesis. 03/25 less pain mostly in the back. No vomiting, or dyspnea. 03/26: Feels stable. Passing gas. No dyspnea. O: Vss PE No pallor icterus Regular Diminished Dimin bs; mild tender no r/r/g No edema A/P 1. Severe pancreatitis stable, on clears; no gallstones. If fevers develops may need debridement. Elective cholecystectomy down the line. 2. Chr alcoholism; consider counseling AA 3. Alcoholic liver disease? 4. Depression? Problems: Exam/Review of Systems Vital Signs Vitals Vital Signs Date Time Temp Pulse Resp B/P Pulse Ox O2 Delivery O2 Flow Rate FiO2 03/26/17 07:00 98.2 90 20 119/75 98 03/25/17 15:00 Room Air Intake and Output 03/25/17 03/25/17 03/26/17 15:00 23:00 07:00 Intake Total 100 ml 1325 ml 1650 ml Output Total 1500 ml Balance 100 ml 1325 ml 150 ml Results Result Diagram: 03/26/17 0505 03/26/17 0505 Results 24 hrs Laboratory Tests Test 03/26/17 05:05 03/26/17 09:18 White Blood Count 9.4 Red Blood Count 3.43 L Hemoglobin 11.0 L Hematocrit 32.2 L Mean Corpuscular Volume 93.9 Mean Corpuscular Hemoglobin 32.1 Mean Corpuscular Hemoglobin Concent 34.2 Red Cell Distribution Width 12.6 Platelet Count 136 L Mean Platelet Volume 10.5 H Neutrophils % 79.3 H Lymphocytes % 11.4 L Monocytes % 6.8 Eosinophils % 1.8 Basophils % 0.4 Nucleated Red Blood Cells % 0.0 Neutrophils # 7.4 Lymphocytes # 1.1 Monocytes # 0.6 Eosinophils # 0.2 Basophils # 0.0 Nucleated Red Blood Cells # 0.0 Sodium Level 137 Potassium Level 3.5 Chloride Level 105 Carbon Dioxide Level 24 Anion Gap 12 Blood Urea Nitrogen 10 # Creatinine 0.78 Glucose Level 64 #L Calcium Level 8.5 Phosphorus Level 2.7 Magnesium Level 2.0 Total Bilirubin 0.8 Direct Bilirubin 0.00 Indirect Bilirubin 0.8 Aspartate Amino Transf (AST/SGOT) 37 Alanine Aminotransferase (ALT/SGPT) 44 Alkaline Phosphatase 53 Total Protein 5.7 L Albumin 3.2 L Globulin 2.50 Albumin/Globulin Ratio 1.28 Lipase 2121 H Bedside Glucose 121 Medications Medications Current Medications Acetaminophen (Tylenol Tab) 650 mg Q6H PRN PO PAIN LEVEL 1-3 OR FEVER; Start at 15:30 Acetaminophen (Tylenol Supp) 650 mg Q6H PRN [place] PAIN LEVEL 1-3 OR FEVER; Start 03/23/17 at 15:30 Oxycodone/ Acetaminophen (Percocet (5/ 325)) 1 tab Q6H PRN PO MODERATE PAIN LEVEL 4-6 Last administered on 03/26/17 10:20; Admin Dose 1 TAB; Start 03/23/17 at 15:30 Morphine Sulfate (morphine) 2 mg Q4H PRN IV SEVERE PAIN LEVEL 7-10 Last administered on 03/25/17 02:37; Admin Dose 2 MG; Start 03/23/17 at 15:30 Bisacodyl (Dulcolax) 5 mg DAILY PRN PO CONSTIPATION; Start 03/23/17 at 15:30 Bisacodyl (Dulcolax Supp) 10 mg DAILY PRN [place] CONSTIPATION; Start 03/23/17 at 15: 30 Famotidine (Pepcid Iv) 20 mg Q12 IV Last administered on 03/26/17 08:56; Admin Dose 20 MG; Start 03/23/17 at 21:00 Morphine Sulfate (morphine) 4 mg Q4 PRN IV PAIN LEVEL 6-10 Last administered on 03/24/17 16:35; Admin Dose 4 MG; Start 03/23/17 at 20:30 Ondansetron HCl (Zofran Inj) 4 mg Q4H PRN IV NAUSEA AND/OR VOMITING; Start 03/24 at 13:00 Enoxaparin Sodium 40 mg 40 mg DAILY SC Last administered on 03/26/17 10:33; Admin Dose 40 MG; Start 03/25/17 at 09:00 Dextrose/Sodium Chloride (D5-1/2ns) 1,000 ml @ 100 mls/hr Q10H IV Last administered on 03/26/17 05:38; Admin Dose 100 MLS/HR; Start 03/26/17 at 07:00 Thiamine HCl (Vitamin B1) 100 mg DAILY PO Last administered on 03/26/17 08:57; Admin Dose 100 MG; Start 03/25/17 at 17:30 ROSALBA SKAGGS MD Mar 26, 2017 14:45
--- NOTE | 2017-03-26 15:04 | PN ---
Date/Time of Note Date/Time of Note DATE: 03/26/17 TIME: 15:02 Assessment/Plan Lines/Catheters IV Catheter Type (from Nrs): Peripheral IV Manzo in Place (from Nrs): No Assessment/Plan Assessment/Plan [facility] Progress Note Date of Service: 03/26/17 Today's Impression & Plan: Overall stable. Pancreatitis clinically and chemically improving with increased oral intake. No indication for acute surgical intervention. With above assessment, I've recommended the following for today: 1. Low fat diet 2. Keep inhouse one more day, with possible d/c planning in 24-48 hrs 3. Labs in am 4. ETOH cessation education 5. Follow up with my office in 2-3 weeks to discuss elective lap yolanda Thank you again for your great care of this very pleasant patient and wonderful family. If there are any questions, please feel free to call me at [phone]. TOTAL VISIT TIME: 20 minutes of which more than half was spent in [id number] discussion with the patient, possibly including family, as well as coordination of care between multiple physicians and providers. Disclaimer: Inadvertent spelling or grammatical errors are likely due to EHR/ dictation software use and do not reflect on the overall quality of patient care. Updated Clinical Summary: A very pleasant and otherwise seemingly healthy 27-year-old young gentleman admitted to the [facility] Emergency Department on 03/23/2017 with pancreatitis that is likely due to alcohol. COMORBIDITIES: Possible alcoholism. Subjective: No major events or complaints; no major abd pain and under control with medications; no n/v/d; no sob or cp; + flatus; - BM; + activity Objective: Vitals: See below Exam: GENERAL: On exam, the patient was sitting in a chair and appeared to be comfortable and in no acute distress. ABDOMEN: Soft, nontender and nondistended. There are no peritoneal signs or guarding. SKIN: Skin appears to be pink and feels warm to touch. NEUROLOGIC: Patient is awake, alert, and follows commands appropriately. Exam/Review of Systems Vital Signs Vitals Vital Signs Date Time Temp Pulse Resp B/P Pulse Ox O2 Delivery O2 Flow Rate FiO2 03/26/17 07:00 98.2 90 20 119/75 98 03/25/17 15:00 Room Air Intake and Output 03/25/17 03/25/17 03/26/17 15:00 23:00 07:00 Intake Total 100 ml 1325 ml 1650 ml Output Total 1500 ml Balance 100 ml 1325 ml 150 ml Results Result Diagram: 03/26/17 0505 03/26/17 0505 GEORGE MARTÍNEZ M.D. Mar 26, 2017 15:04
[2017-03-26 17:00] VITALS: BP 121/76; PULSE 68; RESP 18
[2017-03-26 20:03] VITALS: BP 128/70; RESP 18
[2017-03-27] MEDS: DEXTROSE 5%-0.45% NACL 1,000 ML IV SCH ×3 (01:57→22:37)
[2017-03-27 05:44] LABS: ADD SCAN DIFF NO
[2017-03-27 05:49] LABS: BASOPHILS % 0.4 % (0.0-2.0); EOSINOPHILS # 0.3 10^3/ul (0.0-0.5); EOSINOPHILS % 3.7 % (0.0-7.0); HEMATOCRIT 32.9 % (42.0-52.0); HEMOGLOBIN 11.3 g/dl (14.0-18.0); LYMPHOCYTES # 1.4 10^3/ul (0.8-2.9); LYMPHOCYTES % 19.2 % (15.0-51.0); MEAN CORPUSCULAR HEMOGLOBIN 31.9 pg (29.0-33.0); MEAN CORPUSCULAR HGB CONC 34.3 g/dl (32.0-37.0); MEAN CORPUSCULAR VOLUME 92.9 fl (82.0-101.0); MEAN PLATELET VOLUME 10.6 fl (7.4-10.4); MONOCYTE # 0.6 10^3/ul (0.3-0.9); MONOCYTES % 8.7 % (0.0-11.0); NEUTROPHILS % 67.6 % (39.0-77.0); PLATELET COUNT 188 10^3/UL (140-415); RED BLOOD COUNT 3.54 10^6/ul (4.70-6.10); RED CELL DISTRIBUTION WIDTH 12.4 % (11.5-14.5); WHITE BLOOD COUNT 7.4 10^3/ul (4.8-10.8)
[2017-03-27 06:29] LABS: ALBUMIN 3.5 g/dl (3.3-4.9); ALBUMIN/GLOBULIN RATIO 1.34; BILIRUBIN,INDIRECT 0.4 mg/dl (0-1.1); BILIRUBIN,TOTAL 0.4 mg/dl (0.2-1.3); CALCIUM 8.7 mg/dl (8.4-10.2); CREATININE 0.72 mg/dl (0.61-1.24); PHOSPHORUS 3.6 mg/dl (2.5-4.9); POTASSIUM 3.2 mmol/L (3.5-5.1); TOTAL PROTEIN 6.1 g/dl (6.1-8.1)
[2017-03-27 07:00] VITALS: BP 128/75; RESP 18
[2017-03-27] MEDS: FAMOTIDINE 20 MG INJ IV SCH (09:17)
[2017-03-27] MEDS: THIAMINE 100 MG TAB PO SCH (09:18)
[2017-03-27] MEDS: ENOXAPARIN 40 MG/0.4 ML SYG SC SCH (09:23)
[2017-03-27] MEDS: POTASSIUM CHLORIDE 20 MEQ POWDER FOR ORAL SOLN PO SCH (12:37)
--- NOTE | 2017-03-27 13:55 | PN ---
Date/Time of Note Date/Time of Note DATE: 03/27/17 TIME: 13:54 Assessment/Plan Lines/Catheters IV Catheter Type (from Nrs): Peripheral IV Manzo in Place (from Nrs): No Assessment/Plan Assessment/Plan [facility] Progress Note Date of Service: 03/27/17 Today's Impression & Plan: Overall stable. Pancreatitis continues to improve both clinically and chemically with increased oral intake and on regular low fat diet. No indication for acute surgical intervention. With above assessment, I've recommended the following for today: 1.Consider d/c home when ok by other MD's and providers 2. Follow up with my office in 2-3 weeks to discuss elective lap yolanda Thank you again for your great care of this very pleasant patient and wonderful family. If there are any questions, please feel free to call me at [phone]. TOTAL VISIT TIME: 20 minutes of which more than half was spent in [id number] discussion with the patient, possibly including family, as well as coordination of care between multiple physicians and providers. Disclaimer: Inadvertent spelling or grammatical errors are likely due to EHR/ dictation software use and do not reflect on the overall quality of patient care. Updated Clinical Summary: A very pleasant and otherwise seemingly healthy 27-year-old young gentleman admitted to the [facility] Emergency Department on 03/23/2017 with pancreatitis that is likely due to alcohol. COMORBIDITIES: Possible alcoholism. Subjective: No major events or complaints; no major abd pain and under control with medications; no n/v/d; no sob or cp; + flatus; - BM; + activity Objective: Vitals: See below Exam: GENERAL: On exam, the patient was standing up and appeared to be comfortable and in no acute distress. ABDOMEN: Soft, nontender and nondistended. There are no peritoneal signs or guarding. SKIN: Skin appears to be pink and feels warm to touch. NEUROLOGIC: Patient is awake, alert, and follows commands appropriately. Exam/Review of Systems Vital Signs Vitals Vital Signs Date Time Temp Pulse Resp B/P Pulse Ox O2 Delivery O2 Flow Rate FiO2 03/27/17 07:00 98.7 76 18 128/75 98 03/26/17 17:00 Room Air Intake and Output 03/26/17 03/26/17 03/27/17 15:00 23:00 07:00 Intake Total 2400 ml 1700 ml Output Total 1500 ml Balance 900 ml 1700 ml Results Result Diagram: 03/27/17 0458 03/27/17 0458 GEORGE MARTÍNEZ M.D. Mar 27, 2017 13:55
[2017-03-27 19:00] VITALS: BP 127/67; RESP 18
[2017-03-27] MEDS ORDERED: HYDROCODONE/APAP (10/325) TAB PO PRN (20:30)
[2017-03-28 05:18] LABS: ADD SCAN DIFF NO
[2017-03-28 05:28] LABS: BASOPHILS % 0.3 % (0.0-2.0); EOSINOPHILS # 0.3 10^3/ul (0.0-0.5); EOSINOPHILS % 4.8 % (0.0-7.0); HEMOGLOBIN 11.7 g/dl (14.0-18.0); LYMPHOCYTES # 1.5 10^3/ul (0.8-2.9); LYMPHOCYTES % 24.2 % (15.0-51.0); MEAN CORPUSCULAR HEMOGLOBIN 31.6 pg (29.0-33.0); MEAN CORPUSCULAR HGB CONC 33.4 g/dl (32.0-37.0); MEAN CORPUSCULAR VOLUME 94.6 fl (82.0-101.0); MEAN PLATELET VOLUME 10.6 fl (7.4-10.4); MONOCYTE # 0.6 10^3/ul (0.3-0.9); MONOCYTES % 9.7 % (0.0-11.0); NEUTROPHIL # 3.8 10^3/ul (1.6-7.5); NEUTROPHILS % 60.4 % (39.0-77.0); PLATELET COUNT 224 10^3/UL (140-415); RED CELL DISTRIBUTION WIDTH 12.7 % (11.5-14.5); WHITE BLOOD COUNT 6.2 10^3/ul (4.8-10.8)
[2017-03-28 05:42] LABS: ALBUMIN 3.9 g/dl (3.3-4.9); ALBUMIN/GLOBULIN RATIO 1.3; BILIRUBIN,INDIRECT 0.3 mg/dl (0-1.1); BILIRUBIN,TOTAL 0.3 mg/dl (0.2-1.3); CALCIUM 9.8 mg/dl (8.4-10.2); CREATININE 0.68 mg/dl (0.61-1.24); MAGNESIUM 2.1 mg/dl (1.7-2.5); POTASSIUM 3.6 mmol/L (3.5-5.1); TOTAL PROTEIN 6.9 g/dl (6.1-8.1)
[2017-03-28 08:17] VITALS: BP 117/72; RESP 20
[2017-03-28] MEDS ORDERED: FAMOTIDINE 20 MG INJ IV SCH (09:00)
[2017-03-28] MEDS: THIAMINE 100 MG TAB PO SCH (10:18)
[2017-03-28] MEDS: POTASSIUM CHLORIDE 20 MEQ POWDER FOR ORAL SOLN PO SCH (10:18)
[2017-03-28] MEDS: ENOXAPARIN 40 MG/0.4 ML SYG SC SCH (10:19)
--- NOTE | 2017-03-28 13:03 | PN ---
Date/Time of Note Date/Time of Note DATE: 03/28/17 TIME: 13:02 Assessment/Plan Lines/Catheters IV Catheter Type (from Nrs): Peripheral IV Manzo in Place (from Nrs): No Assessment/Plan Assessment/Plan [facility] Progress Note Date of Service: 03/28/17 Today's Impression & Plan: Overall stable. Pancreatitis continues to improve clinically, but slight rise today chemically, with increased oral intake and on regular low fat diet. No indication for acute surgical intervention. With above assessment, I've recommended the following for today: 1. One more day inhouse 2. Follow up with my office in 2-3 weeks to discuss elective lap yolanda 3. Lipase check tomorrow 4. Saline lock IV Thank you again for your great care of this very pleasant patient and wonderful family. If there are any questions, please feel free to call me at [phone]. TOTAL VISIT TIME: 20 minutes of which more than half was spent in [id number] discussion with the patient, possibly including family, as well as coordination of care between multiple physicians and providers. Disclaimer: Inadvertent spelling or grammatical errors are likely due to EHR/ dictation software use and do not reflect on the overall quality of patient care. Updated Clinical Summary: A very pleasant and otherwise seemingly healthy 27-year-old young gentleman admitted to the [facility] Emergency Department on 03/23/2017 with pancreatitis that is likely due to alcohol. COMORBIDITIES: Possible alcoholism. Subjective: No major events or complaints; no major abd pain and under control with medications; no n/v/d; no sob or cp; + flatus; - BM; + activity Objective: Vitals: See below Exam: GENERAL: On exam, the patient was standing up and appeared to be comfortable and in no acute distress. ABDOMEN: Soft, nontender and nondistended. There are no peritoneal signs or guarding. SKIN: Skin appears to be pink and feels warm to touch. NEUROLOGIC: Patient is awake, alert, and follows commands appropriately. Exam/Review of Systems Vital Signs Vitals Vital Signs Date Time Temp Pulse Resp B/P Pulse Ox O2 Delivery O2 Flow Rate FiO2 03/28/17 08:17 98.3 80 20 117/72 98 03/26/17 17:00 Room Air Intake and Output 603/27/17 03/28/17 15:00 23:00 07:00 Intake Total 600 ml 2060 ml 1050 ml Output Total 1200 ml 900 ml Balance 600 ml 860 ml 150 ml Results Result Diagram: 03/28/17 0426 03/28/17 0426 GEORGE MARTÍNEZ M.D. Mar 28, 2017 13:03
--- NOTE | 2017-03-28 15:38 | PDOCDIS ---
Discharge Instructions DIAGNOSIS Discharge Diagnosis: pancreatitis CONDITION Patient Condition: Stable ACTIVITY: Activity Restrictions: Slowly Increase Activity Avoid heavy lifting FOLLOW UP/APPOINTMENTS Appointments pcp 1wk Dr Osvaldo Wagner 2wROSALBA Blanton MD Mar 28, 2017 15:38
[2017-03-28] MEDS ORDERED: Thiamine PO (15:40)
[2017-03-28] MEDS ORDERED: FAMO20TA18 PO (15:40)
[2017-03-28] MEDS ORDERED: IBUP-1542 PO (15:40)
--- NOTE | 2017-03-29 07:16 | DS ---
DATE OF ADMISSION: 03/23/2017 DATE OF DISCHARGE: 03/28/2017 PRIMARY CARE PHYSICIAN: Unknown. VICTORIAN LITERATURE PROFESSOR: Dr. George Martínez DIAGNOSIS ON ADMISSION: Pancreatitis. DIAGNOSES ON DISCHARGE: 1. Severe pancreatitis with phlegmon, chronic alcoholism. 2. Probable chronic major depression. 3. Possible alcoholic liver disease. HOSPITAL COURSE: A ____[id number] gentleman admitted with chronic alcoholism, acute pancreatitis. H is pancreatitis is stable ____, and he is fit for discharge. He is tolerating diet. Unfortunately, his lipase still remains in the 2400 area. He has extensive tissue necrosis. If he develops a fev er, he potentially may need debridement. There are no fluid collections at this time. He is stable and fit for discharge. DISCHARGE PLAN: Home. FOLLOWUP: 1. Primary in [address] George Martínez, 1 to 2 weeks. 3. AA referral as needed. DIET: Regular. ACTIVITY: As tolerated. DURABLE MEDICAL EQUIPMENT: None. CODE STATUS: FULL. CONDITION: Stable. BARRIERS TO DISCHARGE: None. PENDING TESTS: None. FUNCTIONAL STATUS: The patient awake, alert agrees to plan of care. REASON FOR ADMISSION: Pancreatitis. ALLERGIES: NO KNOWN DRUG ALLERGIES. LABORATORIES: Sodium 140, potassium of 3.6, chloride 105, bicarbonate 28, BUN of 6, creatinine 0.6, glucose 103. A1c is 5.7. Calcium 5.8. Bilirubin 0.3, AST and ALT of 74 and 75, alkaline phosphat ase 89. LDH was 519. Protein of 6.9, albumin 3.9. Vitamin D level 29, a little low. Triglyceride s 121, total 129, HDL 43, LDL 60. White cell count of 6, H and H of 11 and 35, MCV of 94, platelets of 224. INR 0.9. IMAGING: Gallbladder ultrasound showing no acute process. Hepatic steatosis present. CAT scan of abdomen and pelvis read as acute pancreatitis with extensive phlegmon extending through the pancreatic bed into the mesentery and into the right and left anterior pararenal spaces. No jc creas necrosis is present. No gallstones or bile duct dilatation. Phlegmon extending about the duo denum, but there is no evidence of bowel obstruction, and a normal appendix is evident. No evidence of urinary outflow obstruction, urolithiasis. Normal-sized diffusely fatty infiltrate of the liver with no focal lesions. FOLLOWUP PLAN: The patient to visit George Martínez in 1 to 2 weeks. He will need an elective cholec ystectomy once stable. DISCHARGE MEDICATIONS: Continued medications: 1. Tylenol as needed. 2. Pepcid 20 b.i.d. 3. ____ 5 as needed. New medications: 1. Motrin 600 every 6 as needed. 2. Thiamine 100 daily. Dictated By: ROSALBA SKAGGS MD AC/NTS Conf#: [id number] DID#: [id number] CC: GEORGE MARTÍNEZ MD;*EndCC*
[2017-03-29] MEDS ORDERED: FAMOTIDINE 20 MG TAB PO SCH (09:00)
== END 2017-03-28 17:15 | disposition home or self-care (01) | DRG 440 ==
LOC: FTE 11:44 → MS1 14:30
PROVIDERS: ADMIT Hospitalist; ATTEND Hospitalist
DX: K85.20 Alcohol induced acute pancreatitis without necrosis or infection (principal); K70.9 Alcoholic liver disease, unspecified; F32.9 Major depressive disorder, single episode, unspecified; F10.20 Alcohol dependence, uncomplicated
CPT/HCPCS: 36415; 36600; 71010; 74177; 76705; 80053; 80061; 81001; 82306; 82803; 82962; 83036; 83615; 83690; 83735; 84100; 84443; 85025; 85610; 85730; 93005; 96374; 96375; 96376; J0295; J1170; J1650; J2270; J2405; J7030; J7042; Q9967

== ENCOUNTER 2017-04-28 15:07 | Outpatient (CLI) | payer MEDICAID ==
[~2017-04-28] VITALS: Ht 165.1 cm; Wt 66.4 kg
[~2017-04-28 15:07] MED LIST: ACET-141 PO; FAMO10TA84 PO; FAMO20TA18 PO; IBUP-1542 PO; OXYC-279 PO; Thiamine PO
[2017-04-28 15:23] VITALS: Ht 165.1 cm; Wt 66.4 kg
[2017-04-28 15:24] VITALS: BP 121/68; PULSE 83; RESP 18
--- NOTE | 2017-04-28 16:07 | PN ---
Date/Time of Note Date/Time of Note DATE: 04/28/17 TIME: 15:54 Assessment/Plan Assessment/Plan Assessment/Plan [facility] Progress Note Date of Service: 04/28/17 Today's Impression & Plan: Overall stable since discharge from hospital on 03/28/17 with presumed ETOH related pancreatitis which seems to have clinically resolved. No indication for acute surgical intervention, but will likely benefit from elective removal of his gallbladder in my opinion. I reviewed the operation, the risks, benefits and alternatives carefully with the patent (no family present) and obtained his consent for the operation. Answered all questions. Also strongly recommended full cessation of ETOH intake (patient had reported resumption of small ETOH intake). With above assessment, I've recommended the following for today: 1. F/u with PCP 2. Schedule for lap yolanda after 3-4 weeks to give more time for pancreatitis to resolve 3. Complete ETOH cessation 4. May benefit from AA if above continues Nature of Presenting Problem: Moderate to High Severity Thank you again for your great care of this very pleasant patient and wonderful family. If there are any questions, please feel free to call me at [phone]. Disclaimer: Inadvertent spelling or grammatical errors are likely due to EHR/ dictation software use and do not reflect on the overall quality of patient care. Updated Clinical Summary: A very pleasant and otherwise seemingly healthy 27-year-old young gentleman admitted to the [facility] Emergency Department on 03/23/2017 with pancreatitis that is likely due to alcohol. D/c home 03/28/17. COMORBIDITIES: 1. Possible alcoholism. 2. ETOH pancreatitis March 2017 with admission to [facility] Subjective: No major events or complaints; no major abd pain and not on pain medications; no n/v/d; no sob or cp; + flatus; + BM; + activity; reported resumption of ETOH (small amounts) Objective: Vitals: See below Exam: GENERAL: On exam, the patient was sitting in a chair and appeared to be comfortable and in no acute distress. ABDOMEN: Soft, nontender and nondistended. There are no peritoneal signs or guarding. SKIN: Skin appears to be pink and feels warm to touch. NEUROLOGIC: Patient is awake, alert, and follows commands appropriately. Exam/Review of Systems Vital Signs Vitals Vital Signs Date Time Temp Pulse Resp B/P Pulse Ox O2 Delivery O2 Flow Rate FiO2 04/28/17 15:24 97.7 83 18 121/68 98 Room Air GEORGE MARTÍNEZ M.D. Apr 28, 2017 16:07
== END 2017-04-28 16:46 | disposition home or self-care (01) ==
LOC: HPC 15:07
PROVIDERS: ATTEND Transplant Surgery
DX: K85.20 Alcohol induced acute pancreatitis without necrosis or infection (principal)
CPT/HCPCS: G0463

== ENCOUNTER 2017-05-10 13:19 | Inpatient (IN) | payer MEDICAID ==
[~2017-05-10] VITALS: Ht 165.1 cm; Wt 67.1 kg
[~2017-05-10 13:19] MED LIST changes: -FAMO20TA18 PO; -OXYC-279 PO; -Thiamine PO
[2017-05-10] MEDS ORDERED: ONDANSETRON 4 MG INJ IV STA (14:35)
[2017-05-10] MEDS ORDERED: morphine 4 MG/ML VIAL IV STA (14:35)
[2017-05-10] MEDS ORDERED: SOD CHLORIDE 0.9% 1,000 ML IV STA (14:35)
--- NOTE | 2017-05-10 15:30 | ERA ---
ER Documentation Chief Complaint Date/Time DATE: 05/10/17 TIME: 15:26 Chief Complaint left side abd pain with n/v/d since this am HPI This is a 27-year-old male presenting with a 1 day history of upper abdominal pain. Patient also is complaining of nausea and vomiting. Patient denies fever , constipation, diarrhea, sick contacts, history of poorly cooked or new foods, back pain, or taking medications to relieve the symptoms. Patient has had symptoms in the past and was diagnosed with possible gallbladder pathology. Previous documents and nursing notes have been reviewed. ROS All systems reviewed and are negative except as per history of present illness. Medications Home Meds Active Scripts Ibuprofen* (Ibuprofen*) 600 Mg Tablet, 600 MG PO Q6H Y for PAIN LEVEL 6-10, #20 TAB 1 Refill Prov:ROSALBA SKAGGS MD 03/28/17 Reported Medications Famotidine* (Famotidine*) 10 Mg Tablet, 10 MG PO BID, #60 TAB 03/23/17 Acetaminophen* (Acetaminophen*) 500 MG Extra Strength Tablet, 500 MG PO Q4H Y for PAIN AND OR ELEVATED TEMP, TAB 03/23/17 Allergies Allergies: Coded Allergies: No Known Allergy (Unverified , 03/23/17) PMhx/Soc History of Surgery: No (HAD LEFT HAD STITCHED AT ER BEFORE FROM LACERATION) Anesthesia Reaction: No Hx Neurological Disorder: No Hx Respiratory Disorders: No Hx Cardiac Disorders: No Hx Psychiatric Problems: No Hx Miscellaneous Medical Probl: No Hx Alcohol Use: No Hx Substance Use: No Hx Tobacco Use: No Smoking Status: Never smoker Physical Exam Vitals Vital Signs Date Time Temp Pulse Resp B/P Pulse Ox O2 Delivery O2 Flow Rate FiO2 05/10/17 13:20 98.3 110 18 154/73 99 Physical Exam Const: Healthy-appearing. Well-nourished. Well-developed. No acute distress. Abd: Moderate epigastric tenderness. Negative rovsings, psoas, obturator & murphys signs. No Mcburneys point tenderness. Normal bowl sounds auscultated in all 4 quadrants. No aortic / renal / iliac bruits appreciated. No hepatomegaly, splenomegaly, or enlarged abdominal aorta appreciated upon palpation. Abdomen non-distended and soft with no rebound or guarding. Back: No CVA tenderness. No midline or flank tenderness. Head: Normocephalic, Atraumatic. Eyes: Non-injected; No scleral erythema, discharge or foreign body. EOMI and JS bilaterally. Ears: Normal External Ears, EACs clear, TM normal bilaterally without erythema. Nose: Normal nose without discharge, septal deviation, or sinus tenderness. Oral: No oral edema visualized. Mucous membranes moist and pink. Neck: No cervical lymphadenopathy, masses or goiter palpated. Trachea midline. Supple ~ No meningismus. Pulm: No dyspnea, stridor, tripoding or drooling. Good air movement. Clear to auscultation bilaterally. Cardio: Regular rate and rhythm; No murmurs, gallops or rubs auscultated. No JVD grossly observed. Radial and posterior tibial pulses 2+ bilaterally. Capillary refill less than 2 seconds. MS: Normal motor strength, normal tone with gross examination. Skin: No petechiae or rashes. No ulcer, induration, jaundice. Good turgor. Ext: No cyanosis, edema or palpable cord. Normal movement of all extremities grossly observed. Neur: Awake, alert and oriented x3. Neurovascularly intact bilaterally. Psych: Normal Mood and Affect. Result Diagram: 05/10/17 1515 05/10/17 1515 Results 24 hrs Laboratory Tests Test 05/10/17 15:15 White Blood Count 14.410^3/ul Red Blood Count 4.9210^6/ul Hemoglobin 15.7g/dl Hematocrit 44.1% Mean Corpuscular Volume 89.6fl Mean Corpuscular Hemoglobin 31.9pg Mean Corpuscular Hemoglobin Concent 35.6g/dl Red Cell Distribution Width 12.1% Platelet Count 26837^3/UL Mean Platelet Volume 10.0fl Neutrophils % 90.3% Lymphocytes % 5.4% Monocytes % 3.8% Eosinophils % 0.0% Basophils % 0.2% Nucleated Red Blood Cells % 0.0/100WBC Neutrophils # 13.010^3/ul Lymphocytes # 0.810^3/ul Monocytes # 0.510^3/ul Eosinophils # 0.010^3/ul Basophils # 0.010^3/ul Nucleated Red Blood Cells # 0.010^3/ul Urine Color LUCY Urine Clarity TURBID Urine pH 6.0 Urine Specific [place] 1.027 Urine Ketones NEGATIVEmg/dL Urine Nitrite NEGATIVEmg/dL Urine Bilirubin NEGATIVEmg/dL Urine Urobilinogen NEGATIVEmg/dL Urine Leukocyte Esterase NEGATIVELeu/ul Urine Microscopic RBC 0/HPF Urine Microscopic WBC 0/HPF Urine Amorphous Crystals MANY/HPF Urine Mucus FEW/HPF Urine Hemoglobin NEGATIVEmg/dL Urine Glucose NEGATIVEmg/dL Urine Total Protein 2+mg/dl Sodium Level 146mmol/L Potassium Level 4.0mmol/L Chloride Level 102mmol/L Carbon Dioxide Level 27mmol/L Anion Gap 21 Blood Urea Nitrogen 15mg/dl Creatinine 0.88mg/dl Glucose Level 123mg/dl Calcium Level 9.9mg/dl Total Bilirubin 0.7mg/dl Direct Bilirubin 0.00mg/dl Indirect Bilirubin 0.7mg/dl Aspartate Amino Transf (AST/SGOT) 46IU/L Alanine Aminotransferase (ALT/SGPT) 62IU/L Alkaline Phosphatase 119IU/L Total Protein 8.5g/dl Albumin 4.8g/dl Globulin 3.70g/dl Albumin/Globulin Ratio 1.29 Lipase 4793U/L Current Medications Medications (Trade) Dose Ordered Sig/Miguel Route PRN Reason Start Time Stop Time Status Last Admin Dose Admin Sodium Chloride (NS) 1,000 ml @ 1,000 mls/hr Q1H STAT IV 05/10/17 14:35 05/10/17 15:34 DC 05/10/17 15:12 Morphine Sulfate (morphine) 4 mg ONCE STAT IV 05/10/17 14:35 05/10/17 14:37 DC 05/10/17 15:12 Ondansetron HCl (Zofran Inj) 4 mg ONCE STAT IV 05/10/17 14:35 05/10/17 14:37 DC 05/10/17 15:12 Procedures/[facility] Patient was evaluated and worked up for epigastric abdominal discomfort. CT on March 23, 2017 was given the following impression by the radiologist: IMPRESSION: 1. Findings compatible with acute pancreatitis with extensive phlegmon extending through the pancreatic bed, and into the mesentery and into the left and right anterior pararenal spaces. No pancreatic necrosis is evident. 2. No gallstones or bile duct dilatation is evident. 3. Phlegmon extends about the duodenum but there is no evidence of bowel obstruction and a normal vermiform appendix is evident. 4. No evidence of urinary outflow obstruction or ureterolithiasis. 5. Normal sized diffusely fatty infiltrated liver with no focal lesion. Ultrasound on March 23, 2017 was given the following impression by the radiologist : IMPRESSION: Normal gallbladder without gallstones. Increased echogenicity of the liver parenchyma suggestive of hepatic steatosis. Hypoechoic changes of the pancreas may be secondary to pancreatitis. Recommend correlation with biochemical markers. Patient was given 1 hour liter bolus of saline, 4 mg of morphine IV and 4 mg of Zofran IV with adequate relief of symptoms. The workup included CBC, CMP, lipase, right upper quadrant limited ultrasound. Labs were remarkable for white blood cell count of 14.4 and a lipase of 4793. Ultrasound results were read by the radiologist given the following impression: Heterogeneous appearance of the pancreas. Further evaluation with CT is recommended. Mild fatty infiltration of the liver. CT scan has been ordered. Patient has been reevaluated and is feeling comfortable without abdominal pain at this time with continued mild to moderate epigastric tenderness. I spoken to my attending Dr. Veloz who will be taking the case at this time. Departure Diagnosis: Primary Impression: Epigastric abdominal pain Additional Impression: Pancreatitis Condition: Stable Additional Instructions: Patient being transferred to the care of ANGELA Sun PA-C May 10, 2017 15:30
[2017-05-10 15:40] LABS: BASOPHILS % 0.2 % (0.0-2.0); HEMATOCRIT 44.1 % (42.0-52.0); HEMOGLOBIN 15.7 g/dl (14.0-18.0); LYMPHOCYTES # 0.8 10^3/ul (0.8-2.9); LYMPHOCYTES % 5.4 % (15.0-51.0); MEAN CORPUSCULAR HEMOGLOBIN 31.9 pg (29.0-33.0); MEAN CORPUSCULAR HGB CONC 35.6 g/dl (32.0-37.0); MEAN CORPUSCULAR VOLUME 89.6 fl (82.0-101.0); MONOCYTE # 0.5 10^3/ul (0.3-0.9); MONOCYTES % 3.8 % (0.0-11.0); NEUTROPHILS % 90.3 % (39.0-77.0); PLATELET COUNT 311 10^3/UL (140-415); RED BLOOD COUNT 4.92 10^6/ul (4.70-6.10); RED CELL DISTRIBUTION WIDTH 12.1 % (11.5-14.5); WHITE BLOOD COUNT 14.4 10^3/ul (4.8-10.8)
--- NOTE | 2017-05-10 15:43 | RADRPT ---
PROCEDURE: US Abdomen. CLINICAL INDICATION: abdominal pain TECHNIQUE: Multiple real-time images were acquired of the patient's right upper quadrant abdomen a nd retroperitoneum utilizing a high resolution transducer. COMPARISON: 03/23/2017 FINDINGS: The liver demonstrates slightly increased echogenicity. The liver is normal in size and no focal so lid lesions are seen. The liver measures 16.7 cm in length. The portal vein is patent with normal di rection of flow. No intrahepatic biliary dilatation is seen. No gallstones are identified within the gallbladder. There is no pericholecystic fluid or gallbladd er wall thickening. The common bile duct measures 3 mm in maximal dimension. The pancreas is heterogeneous in echogenicity. No free fluid is identified. The right kidney is normal in size, and demonstrate normal echogenicity and cortical thickness. The right kidney measures 8.8 cm in long dimension. There is no evidence of hydronephrosis. There are no kidney stones. RPTAT: AA IMPRESSION: Heterogeneous appearance of the pancreas. Further evaluation with CT is recommended. Mild fatty infiltration of the liver. .Bubba Rodriguez MD, MD Date Time Electronically viewed and signed by .Bubba Rodriguez MD, on 05/10/2017 15:42 .S/
[2017-05-10 15:46] LABS: ADD UMIC YES; UR AMORPHOUS CRYSTAL MANY /HPF (NONE SEEN); UR ASCORBIC ACID NEGATIVE (NEGATIVE); UR BILIRUBIN (Dip) NEGATIVE (NEGATIVE); UR BLOOD (Dip) NEGATIVE (NEGATIVE); UR CLARITY TURBID (CLEAR); UR COLOR AMBER (YELLOW); UR GLUCOSE (Dip) NEGATIVE (NEGATIVE); UR KETONES (Dip) NEGATIVE (NEGATIVE); UR LEUKOCYTE ESTERASE (Dip) NEGATIVE Leu/ul (NEGATIVE); UR MUCUS FEW /HPF (NONE SEEN); UR NITRITE (Dip) NEGATIVE (NEGATIVE); UR RBC 0 /HPF (0-5); UR SPECIFIC GRAVITY (Dip) 1.027 (1.003-1.030); UR TOTAL PROTEIN (Dip) 2+ mg/dl (NEGATIVE); UR UROBILINOGEN (Dip) NEGATIVE (NEGATIVE)
[2017-05-10 16:02] LABS: ALBUMIN 4.8 g/dl (3.3-4.9); ALBUMIN/GLOBULIN RATIO 1.29; BILIRUBIN,INDIRECT 0.7 mg/dl (0-1.1); BILIRUBIN,TOTAL 0.7 mg/dl (0.2-1.3); CALCIUM 9.9 mg/dl (8.4-10.2); CREATININE 0.88 mg/dl (0.61-1.24); TOTAL PROTEIN 8.5 g/dl (6.1-8.1)
--- NOTE | 2017-05-10 17:25 | RADRPT ---
PROCEDURE: CT Abdomen and Pelvis without contrast. CLINICAL INDICATION: Epigastric pain radiating to the back. Nausea and vomiting. TECHNIQUE: CT scan of the abdomen and pelvis without contrast was performed on a multidetector hig h-resolution CT scanner. The patient was scanned without intravenous contrast. Coronal and sagittal reformatted images were obtained from the axial source images. Images were reviewed on a high-resol [employer] PACS workstation. The total exam CTDI equals 7.96 mGy and the total exam DLP equals 476.89 mGy -cm. COMPARISON: 03/23/2017 FINDINGS: CT abdomen: The lung bases are clear. The heart size is normal, without pericardial thickening or effusion. The liver is prominent measuring 17 cm and demonstrates diffusely decreased attenuation without foca l mass or intrahepatic biliary dilatation. The spleen is normal in size and homogeneous in density. The stomach is grossly unremarkable. There is moderate peripancreatic inflammatory changes extend ing from the pancreatic tail to the uncinate process. Peripancreatic fat stranding and fluid is pre sent decreased in severity compared to the prior exam. There is no organized fluid collection to s uggest abscess or pseudocyst. The gallbladder and biliary tree are unremarkable and there is no evidence for biliary dilatation. The adrenal glands are symmetric and normal. The kidneys are symmetrically unremarkable as well. N o renal calculus or obstructive uropathy or mass lesion is seen. The aorta is of normal caliber. There is no retroperitoneal lymphadenopathy. The arnulfo hepatis reg ion is clear. The bowel and mesentery, as visualized, are equally unremarkable. CT pelvis: The small bowel loops situated within the pelvis are unremarkable. The pelvic organs are normal. T he pelvic sidewalls and inguinal regions are clear. The sigmoid colon and rectum are unremarkable. The appendix is normal. No mass, lymphadenopathy, or free fluid is seen. No acute inflammation is s een. The surrounding osseous structures are unremarkable. No osteolytic or osteoblastic lesion is detec lisa. IMPRESSION: 1. Moderate peripancreatic inflammatory changes consistent with acute pancreatitis, decreased in se verity compared to the prior CT. No evidence of abscess or pseudocyst. 2. Hepatomegaly and hepatic steatosis. RPTAT: CC .Santohs Perez MD, Date Time Electronically viewed and signed by .Santosh Perez MD, on 05/10/2017 17:24 .A/
[2017-05-10] MEDS ORDERED: SOD CHLORIDE 0.9% 1,000 ML IV SCH (17:50)
[2017-05-10] MEDS ORDERED: ACETAMINOPHEN 325 MG TAB PO PRN (18:00)
[2017-05-10] MEDS ORDERED: ONDANSETRON 4 MG INJ IV PRN (18:00)
--- NOTE | 2017-05-10 18:23 | HP ---
Date/Time of Note Date/Time of Note DATE: 05/10/17 TIME: 18:22 Assessment/Plan VTE Prophylaxis VTE Prophylaxis Intervention: SCD's Lines/Catheters IV Catheter Type (from Nrsg): Peripheral IV Assessment/Plan Assessment/Plan 27 yo M with hx alcohol abuse, previous admission for alcoholic pancreatitis, admitted for abd pain. Suspect another episode of alcoholic pancreatitis given elevated lipase and episode precipitated by EtOH binge. PLAN #pancreatitis from EtOH abuse: NPO, IVFs, pain control check a1c and lipids though EtOH most likely etio #EtOH abuse: close clinical monitoring for withdrawal, sw consult Of note, pt seen by gen surg during previous admit given pt with pancreatic phlegmon from EtOH induced pancreatitis. will also arrange for f/u after this hospitalization HPI/ROS Admit Date/Time Admit Date/Time Hx of Present Illness 27 yo M with admission earlier this summer for alcoholic pancreatitis presents with abd pain x 1 day. Pt states after being discharged from the hospital in March he generally abstained from alcohol with the exception of 1 day last week and both days this weekend. Pt drank 12 beers 2 days prior to admission and 6 beers yesterday. Since this morning he's been having severe abd pain and has been unable to tolerate PO. PMH/Family/Social Social History lives in the community Smoking Status: Never smoker Exam/Review of Systems Vital Signs Vitals Vital Signs Date Time Temp Pulse Resp B/P Pulse Ox O2 Delivery O2 Flow Rate FiO2 05/10/17 13:20 98.3 110 18 154/73 99 Exam Exam uncomfortable, laying in bed EOMI MMM rrr no mrg lungs clear abd soft, +mild ttp in all quadrants. no rebound or guarding no rashes no le edema moves exts freely labs with AG lipase elevated abd imaging with pancreatitis, +steatohepatitis Labs Result Diagram: 05/10/17 1515 05/10/17 1515 Medications Medications Current Medications Sodium Chloride (NS) 1,000 ml @ 80 mls/hr [id number] IV ; Start 05/10/17 at 17:50 ; Stop 05/11/17 at 06:19 Acetaminophen (Tylenol Tab) 500 mg Q4H PRN PO PAIN AND OR ELEVATED TEMP; Start 05/10/17 at 18:30; Status UNV Ibuprofen (Motrin) 600 mg Q6H PRN PO PAIN LEVEL 6-10; Start 05/10/17 at 18:30; Status UNV Miscellaneous Information 10 mg 10 mg BID PO ; Start 05/10/17 at 21:00; Status UNV Sodium Chloride (NS) 1,000 ml @ 250 mls/hr Q4H IV ; Start 05/10/17 at 18:19; Status UNV Morphine Sulfate (morphine) 2 mg Q4H PRN IV SEVERE PAIN LEVEL 7-10; Start 05/10 at 18:30; Status UNV Enoxaparin Sodium (Lovenox) 40 mg DAILY SC ; Start 05/11/17 at 09:00; Status UNV LIEN BATES MD May 10, 2017 18:23
[2017-05-10] MEDS ORDERED: ACETAMINOPHEN 500 MG TAB PO PRN (18:30)
[2017-05-10] MEDS ORDERED: NACL 0.9% 3 ML SYG IV SCH (18:30)
[2017-05-10] MEDS ORDERED: IBUPROFEN 600 MG TAB PO PRN (18:30)
[2017-05-10 18:55] VITALS: PULSE 74; TEMP 98.8
[2017-05-10] MEDS ORDERED: LORAZEPAM 1 MG TAB PO PRN (19:00)
[2017-05-10] MEDS: morphine 2 MG INJ IV PRN (19:01)
[2017-05-10 19:03] LABS: CHOL/HDL RATIO 2.8 RATIO; CHOLESTEROL 144 mg/dl (100-200); HDL CHOLESTEROL 50 mg/dl (30-63); TRIGLYCERIDES 384 mg/dl (0-149)
[2017-05-10] MEDS: SOD CHLORIDE 0.9% 1,000 ML IV SCH ×2 (19:07→23:41)
[2017-05-10 19:15] LABS: ETHANOL < 10.0 mg/dl
[2017-05-10 21:00] VITALS: Ht 165.1 cm; Wt 67.1 kg
[2017-05-10] MEDS: FAMOTIDINE 20 MG TAB PO SCH (21:00)
[2017-05-10] MEDS ORDERED: NON-FORMULARY/PATIENT OWN MED (Famotidine* 10 MG) PO SCH (21:00)
[2017-05-11] MEDS: morphine 2 MG INJ IV PRN ×4 (01:02→20:57)
[2017-05-11 02:00] VITALS: BP 117/69; RESP 18
[2017-05-11] MEDS: SOD CHLORIDE 0.9% 1,000 ML IV SCH ×5 (02:19→12:11)
[2017-05-11 07:22] VITALS: BP 134/81; RESP 20
[2017-05-11] MEDS: ENOXAPARIN 40 MG/0.4 ML SYG SC SCH (08:17)
[2017-05-11] MEDS: FAMOTIDINE 20 MG TAB PO SCH ×2 (08:19→20:53)
[2017-05-11 13:59] VITALS: BP 134/81; RESP 20
--- NOTE | 2017-05-11 14:48 | PN ---
Date/Time of Note Date/Time of Note DATE: 05/11/17 TIME: 14:40 Assessment/Plan VTE Prophylaxis VTE Prophylaxis Intervention: LMWH Lines/Catheters IV Catheter Type (from Nrsg): Peripheral IV Assessment/Plan Assessment/Plan 1. Acute alcohol-induced pancreatitis, start liquid diet 2. Alcohol abuse, no withdrawal, banana bag, ativan prn 3. Hypertriglyceridemia, diet control DVT prophylaxis: lovenox Subjective 24 Hr Interval Summary Free Text/Dictation less abdominal pain. No nausea or vomiting Exam/Review of Systems Vital Signs Vitals Vital Signs Date Time Temp Pulse Resp B/P Pulse Ox O2 Delivery O2 Flow Rate FiO2 05/11/17 13:59 97.8 89 20 134/81 97 05/10/17 18:55 Room Air Intake and Output 05/10/17 05/10/17 05/11/17 15:00 23:00 07:00 Intake Total 2275 ml Output Total 300 ml Balance 1975 ml Exam Constitutional: alert, oriented, well developed Psych: nl mood/affect, no complaints Head: atraumatic, normocephalic Eyes: EOMI, PERRL, nl conjunctiva, nl lids ENMT: nl external ears & nose, nl lips & teeth, nl nasal mucosa & septum Neck: non-tender, supple Respiratory: clear to auscultation, normal air movement, No congested cough, No crackles/rales, No diminished breath sounds, No intercostal retraction, No labored breathing, No other, No respirations, No tactile fremitus, No wheezing Cardiovascular: nl pulses, regular rate and rhythm, No S3, No S4, No bruits, No diastolic murmur, No edema, No gallop, No irregular rhythm, No jugular venous distention (JVD), No murmurs/extra sounds, No other, No rub, No systolic murmur Gastrointestinal: nl liver, spleen, soft, tender (mild epigastric tenderrness) , No ascites, No bowel sounds, No distended, No firm, No hepatomegaly, No mass , No other, No rebound or guarding, No splenomegaly, No surgical scars Musculoskeletal: nl extremities to inspection Extremities: normal pulses, No calf tenderness, No clubbing, No cyanosis, No edema, No other, No palpable cord, No pitting pedal edema, No tenderness Neurological: HAND WINDER II-XII intact, nl mental status, nl speech, nl strength Skin: nl turgor Lymph: nl lymph nodes Results Result Diagram: 05/10/17 1515 05/10/17 1515 Results 24 hrs Laboratory Tests Test 05/10/17 15:15 White Blood Count 14.4 #H Red Blood Count 4.92 # Hemoglobin 15.7 # Hematocrit 44.1 # Mean Corpuscular Volume 89.6 Mean Corpuscular Hemoglobin 31.9 Mean Corpuscular Hemoglobin Concent 35.6 Red Cell Distribution Width 12.1 Platelet Count 311 # Mean Platelet Volume 10.0 Neutrophils % 90.3 H Lymphocytes % 5.4 L Monocytes % 3.8 Eosinophils % 0.0 Basophils % 0.2 Nucleated Red Blood Cells % 0.0 Neutrophils # 13.0 H Lymphocytes # 0.8 Monocytes # 0.5 Eosinophils # 0.0 Basophils # 0.0 Nucleated Red Blood Cells # 0.0 Urine Color LUCY Urine Clarity TURBID A Urine pH 6.0 Urine Specific [place] 1.027 Urine Ketones NEGATIVE Urine Nitrite NEGATIVE Urine Bilirubin NEGATIVE Urine Urobilinogen NEGATIVE Urine Leukocyte Esterase NEGATIVE Urine Microscopic RBC 0 Urine Microscopic WBC 0 Urine Amorphous Crystals MANY A Urine Mucus FEW A Urine Hemoglobin NEGATIVE Urine Glucose NEGATIVE Urine Total Protein 2+ H Sodium Level 146 H Potassium Level 4.0 Chloride Level 102 Carbon Dioxide Level 27 Anion Gap 21 H Blood Urea Nitrogen 15 Creatinine 0.88 Glucose Level 123 Hemoglobin A1c 5.5 Calcium Level 9.9 Total Bilirubin 0.7 Direct Bilirubin 0.00 Indirect Bilirubin 0.7 Aspartate Amino Transf (AST/SGOT) 46 Alanine Aminotransferase (ALT/SGPT) 62 Alkaline Phosphatase 119 Total Protein 8.5 H Albumin 4.8 Globulin 3.70 H Albumin/Globulin Ratio 1.29 Triglycerides Level 384 H Cholesterol Level 144 LDL Cholesterol, Calculated 17 HDL Cholesterol 50 Cholesterol/HDL Ratio 2.8 Lipase 4793 H Ethyl Alcohol Level < 10.0 Medications Medications Current Medications Acetaminophen (Tylenol Tab) 500 mg Q4H PRN PO PAIN AND OR ELEVATED TEMP; Start 05/10/17 at 18:30 Ibuprofen 600 mg 600 mg Q6H PRN PO PAIN LEVEL 6-10; Start 05/10/17 at 18:30 Sodium Chloride (NS) 1,000 ml @ 250 mls/hr Q4H IV Last administered on t 12:11; Admin Dose 250 MLS/HR; Start 05/10/17 at 18:19 Morphine Sulfate (morphine) 2 mg Q4H PRN IV SEVERE PAIN LEVEL 7-10 Last administered on 05/11/17 11:58; Admin Dose 2 MG; Start 05/10/17 at 18:30 Enoxaparin Sodium (Lovenox) 40 mg DAILY SC Last administered on 05/11/17 08:17 ; Admin Dose 40 MG; Start 05/11/17 at 09:00 Lorazepam (Ativan) 1 mg Q4H PRN PO withdrawal; Start 05/10/17 at 19:00 Famotidine (Pepcid) 10 mg BID PO ; Start 05/10/17 at 21:00 BARTOLOME BRINK MD May 11, 2017 14:48
[2017-05-11] MEDS ORDERED: LORAZEPAM 1 MG TAB PO PRN (15:00)
[2017-05-11] MEDS: D5-NS + KCL 20 MEQ 1,000 ML IV SCH (16:53)
[2017-05-11 20:09] VITALS: BP 127/71; RESP 20
[2017-05-12] MEDS: D5-NS + KCL 20 MEQ 1,000 ML IV SCH ×3 (01:00→21:11)
[2017-05-12 02:25] VITALS: BP 104/57; RESP 18
[2017-05-12] MEDS: morphine 2 MG INJ IV PRN ×2 (03:08→10:50)
[2017-05-12 05:46] LABS: BASOPHILS % 0.4 % (0.0-2.0); EOSINOPHILS # 0.4 10^3/ul (0.0-0.5); EOSINOPHILS % 4.4 % (0.0-7.0); HEMATOCRIT 35.1 % (42.0-52.0); HEMOGLOBIN 12.4 g/dl (14.0-18.0); LYMPHOCYTES # 1.6 10^3/ul (0.8-2.9); LYMPHOCYTES % 19.6 % (15.0-51.0); MEAN CORPUSCULAR HEMOGLOBIN 32.3 pg (29.0-33.0); MEAN CORPUSCULAR HGB CONC 35.3 g/dl (32.0-37.0); MEAN CORPUSCULAR VOLUME 91.4 fl (82.0-101.0); MEAN PLATELET VOLUME 10.4 fl (7.4-10.4); MONOCYTE # 0.7 10^3/ul (0.3-0.9); MONOCYTES % 8.9 % (0.0-11.0); NEUTROPHIL # 5.5 10^3/ul (1.6-7.5); NEUTROPHILS % 66.5 % (39.0-77.0); PLATELET COUNT 216 10^3/UL (140-415); RED BLOOD COUNT 3.84 10^6/ul (4.70-6.10); RED CELL DISTRIBUTION WIDTH 12.5 % (11.5-14.5); WHITE BLOOD COUNT 8.2 10^3/ul (4.8-10.8)
[2017-05-12 06:14] LABS: CALCIUM 8.9 mg/dl (8.4-10.2); CREATININE 0.74 mg/dl (0.61-1.24); POTASSIUM 3.9 mmol/L (3.5-5.1)
[2017-05-12 07:21] VITALS: BP 106/60; RESP 20
[2017-05-12] MEDS: FAMOTIDINE 20 MG TAB PO SCH ×2 (08:45→21:11)
[2017-05-12] MEDS: ENOXAPARIN 40 MG/0.4 ML SYG SC SCH (08:51)
[2017-05-12] MEDS: MULTIVITAMINS 10 ML, THIAMINE 100 MG, FOLIC ACID 1 MG in SOD CHLORIDE 0.9% 1,000 ML IVPB SCH ×2 (09:00→13:39)
[2017-05-12 13:14] VITALS: BP 118/58; RESP 18
--- NOTE | 2017-05-12 15:07 | PN ---
Date/Time of Note Date/Time of Note DATE: 05/12/17 TIME: 15:05 Assessment/Plan VTE Prophylaxis VTE Prophylaxis Intervention: LMWH Lines/Catheters IV Catheter Type (from Nrsg): Peripheral IV Assessment/Plan Assessment/Plan 1. Acute alcohol-induced pancreatitis, advance diet 2. Alcohol abuse, no withdrawal, banana bag, ativan prn 3. Hypertriglyceridemia, diet control 4. DVT prophylaxis: lovenox Subjective 24 Hr Interval Summary Free Text/Dictation mild epigastric pain Exam/Review of Systems Vital Signs Vitals Vital Signs Date Time Temp Pulse Resp B/P Pulse Ox O2 Delivery O2 Flow Rate FiO2 05/12/17 13:14 97.8 87 18 118/58 99 05/10/17 18:55 Room Air Intake and Output 05/11/17 05/11/17 05/12/17 15:00 23:00 07:00 Intake Total 1000 ml 1000 ml 1920 ml Output Total 1450 ml 200 ml Balance 1000 ml -450 ml 1720 ml Exam Constitutional: alert, oriented, well developed Psych: nl mood/affect, no complaints Head: atraumatic, normocephalic Eyes: EOMI, PERRL, nl conjunctiva, nl lids ENMT: nl external ears & nose, nl lips & teeth, nl nasal mucosa & septum Neck: non-tender, supple Respiratory: clear to auscultation, normal air movement, No congested cough, No crackles/rales, No diminished breath sounds, No intercostal retraction, No labored breathing, No other, No respirations, No tactile fremitus, No wheezing Cardiovascular: nl pulses, regular rate and rhythm, No S3, No S4, No bruits, No diastolic murmur, No edema, No gallop, No irregular rhythm, No jugular venous distention (JVD), No murmurs/extra sounds, No other, No rub, No systolic murmur Gastrointestinal: nl liver, spleen, non-tender, soft, No ascites, No bowel sounds, No distended, No firm, No hepatomegaly, No mass , No other, No rebound or guarding, No splenomegaly, No surgical scars, No tender Musculoskeletal: nl extremities to inspection Extremities: normal pulses, No calf tenderness, No clubbing, No cyanosis, No edema, No other, No palpable cord, No pitting pedal edema, No tenderness Neurological: NUTRITION HELPER II-XII intact, nl mental status, nl speech, nl strength Results Result Diagram: 05/12/17 0502 05/12/17 0502 Results 24 hrs Laboratory Tests Test 05/12/17 05:02 White Blood Count 8.2 # Red Blood Count 3.84 #L Hemoglobin 12.4 #L Hematocrit 35.1 #L Mean Corpuscular Volume 91.4 Mean Corpuscular Hemoglobin 32.3 Mean Corpuscular Hemoglobin Concent 35.3 Red Cell Distribution Width 12.5 Platelet Count 216 # Mean Platelet Volume 10.4 Neutrophils % 66.5 Lymphocytes % 19.6 Monocytes % 8.9 Eosinophils % 4.4 Basophils % 0.4 Nucleated Red Blood Cells % 0.0 Neutrophils # 5.5 Lymphocytes # 1.6 Monocytes # 0.7 Eosinophils # 0.4 Basophils # 0.0 Nucleated Red Blood Cells # 0.0 Sodium Level 141 Potassium Level 3.9 Chloride Level 103 Carbon Dioxide Level 28 Anion Gap 14 # Blood Urea Nitrogen 5 #L Creatinine 0.74 Glucose Level 106 Calcium Level 8.9 Lipase 3624 H Medications Medications Current Medications Acetaminophen (Tylenol Tab) 500 mg Q4H PRN PO PAIN AND OR ELEVATED TEMP; Start 05/10/17 at 18:30 Ibuprofen (Motrin) 600 mg Q6H PRN PO PAIN LEVEL 6-10; Start 05/10/17 at 18:30 Morphine Sulfate (morphine) 2 mg Q4H PRN IV SEVERE PAIN LEVEL 7-10 Last administered on 05/12/17 10:50; Admin Dose 2 MG; Start 05/10/17 at 18:30 Enoxaparin Sodium (Lovenox) 40 mg DAILY SC Last administered on 05/12/17 08:51 ; Admin Dose 40 MG; Start 05/11/17 at 09:00 Lorazepam (Ativan) 1 mg Q4H PRN PO withdrawal; Start 05/10/17 at 19:00 Famotidine 10 mg 10 mg BID PO Last administered on 05/12/17 08:45; Admin Dose 10 MG; Start 05/10/17 at 21:00 Potassium Chloride/Dextrose/ Sod Cl 1,000 ml @ 100 mls/hr Q10H IV Last administered on 05/12/17 03:05; Admin Dose 100 MLS/HR; Start 05/11/17 at 15:00 Multivitamins/ Thiamine HCl/ Folic Acid/Sodium Chloride (Mvi Adult/ Vitamin B1/ Folic Acid/NS) 1,011.2 ml @ 125 mls/ hr DAILY@09 IVPB Last administered on t 13:39; Admin Dose 125 MLS/HR; Start 05/12/17 at 09:00 Lorazepam (Ativan) 1 mg Q6H PRN PO ANXIETY; Start 05/11/17 at 15:00 BARTOLOME BRINK MD May 12, 2017 15:07
[2017-05-12 19:42] VITALS: BP 117/77; RESP 18
[2017-05-13 01:36] VITALS: BP 119/74; RESP 18
[2017-05-13 05:59] LABS: ALBUMIN 3.7 g/dl (3.3-4.9); ALBUMIN/GLOBULIN RATIO 1.37; BILIRUBIN,INDIRECT 0.4 mg/dl (0-1.1); BILIRUBIN,TOTAL 0.4 mg/dl (0.2-1.3); CALCIUM 9.2 mg/dl (8.4-10.2); CHOL/HDL RATIO 3.3 RATIO; CREATININE 0.71 mg/dl (0.61-1.24); POTASSIUM 4.1 mmol/L (3.5-5.1); TOTAL PROTEIN 6.4 g/dl (6.1-8.1)
[2017-05-13] MEDS: D5-NS + KCL 20 MEQ 1,000 ML IV SCH (06:16)
[2017-05-13 07:46] VITALS: BP 115/62; RESP 16
[2017-05-13] MEDS: ENOXAPARIN 40 MG/0.4 ML SYG SC SCH (09:37)
[2017-05-13] MEDS: FAMOTIDINE 20 MG TAB PO SCH (12:06)
--- NOTE | 2017-05-13 13:48 | PDOCDIS ---
Discharge Instructions DIAGNOSIS Discharge Diagnosis Pancreatitis CONDITION Patient Condition: Good HOME CARE INSTRUCTIONS: Diet Instructions: Low Fat /CholesterolSpecial Diet: Full LiquidsYour diet recommendation is: NO ALCOHOL ACTIVITY: Activity Restrictions: No Restrictions KALEB CORTES MD May 13, 2017 13:48
--- NOTE | 2017-05-13 13:50 | DS ---
Date/Time of Note Date/Time of Note DATE: 05/13/17 TIME: 13:48 Discharge Summary Admission/Discharge Info Admit Date/Time May 10, 2017 at 17:51 Discharge Date/Time Discharge Diagnosis Pancreatitis Patient Condition: Good Hx of Present Illness 27 yo M with admission earlier this summer for alcoholic pancreatitis presents with abd pain x 1 day. Pt states after being discharged from the hospital in March he generally abstained from alcohol with the exception of 1 day last week and both days this weekend. Pt drank 12 beers 2 days prior to admission and 6 beers yesterday. Since this morning he's been having severe abd pain and has been unable to tolerate PO. Hospital Course Treated with IV fluid and pain medicaitons. Symptoms resolved and patient was tolerating PO Counseled extensively on importance of avoiding alcohol. Referred to alcohol counseling services at discharge Home Meds Active Scripts Ibuprofen* (Ibuprofen*) 600 Mg Tablet, 600 MG PO Q6H Y for PAIN LEVEL 6-10, #20 TAB 1 Refill Prov:ROSALBA SKAGGS MD 03/28/17 Reported Medications Famotidine* (Famotidine*) 10 Mg Tablet, 10 MG PO BID, #60 TAB 03/23/17 Acetaminophen* (Acetaminophen*) 500 MG Extra Strength Tablet, 500 MG PO Q4H Y for PAIN AND OR ELEVATED TEMP, TAB 03/23/17 Primary Care Provider Care Physician No Primary Time spent on discharge: < 30 minutes Pending Labs Laboratory Tests Test 05/13/17 04:58 Sodium Level 144mmol/L (135-144) Potassium Level 4.1mmol/L (3.5-5.1) Chloride Level 104mmol/L (97-110) Carbon Dioxide Level 27mmol/L (21-31) Anion Gap 17 (8-16) Blood Urea Nitrogen 4mg/dl (7-20) Creatinine 0.71mg/dl (0.61-1.24) Glucose Level 105mg/dl (70-220) Calcium Level 9.2mg/dl (8.4-10.2) Total Bilirubin 0.4mg/dl (0.2-1.3) Direct Bilirubin 0.00mg/dl (0.00-0.20) Indirect Bilirubin 0.4mg/dl (0-1.1) Aspartate Amino Transf (AST/SGOT) 36IU/L (15-46) Alanine Aminotransferase (ALT/SGPT) 39IU/L (13-69) Alkaline Phosphatase 91IU/L (42-121) Total Protein 6.4g/dl (6.1-8.1) Albumin 3.7g/dl (3.3-4.9) Globulin 2.70g/dl (1.3-3.2) Albumin/Globulin Ratio 1.37 Triglycerides Level 119mg/dl (0-149) Cholesterol Level 128mg/dl (100-200) LDL Cholesterol, Calculated 66mg/dl HDL Cholesterol 38mg/dl (30-63) Cholesterol/HDL Ratio 3.3RATIO Amylase Level 267U/L (11-123) Lipase 3380U/L (23-300) KALEB CORTES MD May 13, 2017 13:50
== END 2017-05-13 14:30 | disposition home or self-care (01) | DRG 440 ==
LOC: FTE 13:19 → MS2 17:51
PROVIDERS: ADMIT Internal Medicine; ATTEND Internal Medicine
DX: K85.20 Alcohol induced acute pancreatitis without necrosis or infection (principal); E78.1 Pure hyperglyceridemia; F10.10 Alcohol abuse, uncomplicated
CPT/HCPCS: 36415; 74176; 76705; 80048; 80053; 80061; 80306; 81001; 82150; 83036; 83690; 85025; 96361; 96374; 96375; 96376; J1650; J2270; J2405; J3411; J3480; J7030

== ENCOUNTER 2018-05-31 12:59 | Inpatient (IN) | END 2018-06-02 16:55 | disposition home or self-care (01) | DRG 440 ==

== ENCOUNTER 2018-07-03 01:24 | Emergency (ER) | END 2018-07-03 06:09 | disposition home or self-care (01) ==